=== PATIENT | male | born 1945 | race Caucasian/White ===

== ENCOUNTER 2020-01-29 09:02 | Outpatient (REF) | payer MEDICARE, SELFPAY ==
[2020-01-29 10:21] LABS: Estimated Average Glucose 232 mg/dL; Hemoglobin A1c % 9.7 %
[2020-01-29 10:27] LABS: Glucose Fasting 225 mg/dL (60-99)
== END 2020-01-29 09:03 | disposition home or self-care (01) ==
LOC: HO.LAB 09:02
PROVIDERS: PCP Internal Medicine; Visit Provider Internal Medicine
DX: E11.9 Type 2 diabetes mellitus without complications (principal)
CPT/HCPCS: 82947; 83036

== ENCOUNTER 2020-01-29 09:36 | Outpatient (REF) | payer MEDICARE, SELFPAY | END 2020-01-29 09:37 | disposition home or self-care (01) | LOC: HO.LAB 09:36 | PROVIDERS: PCP Internal Medicine; Visit Provider Internal Medicine | DX: Z20.828 Contact with and (suspected) exposure to other viral communicable diseases (principal) | CPT/HCPCS: 82947; 83036; C9803; U0003 ==

== ENCOUNTER 2020-04-22 10:45 | Outpatient (REF) | payer MEDICARE, SELFPAY ==
[2020-04-22 11:23] LABS: Hemoglobin 15.1 g/dl (14.0-18.0); MANUAL DIFF FLAG SCAN; SCAN SMEAR FLAG 1
[2020-04-22 11:25] LABS: Basophils Percent Auto 0.5 % (0-2); Eosinophils Absolute Auto 0.1 X10*3/uL (0.0-0.4); Eosinophils Percent Auto 1.2 % (0-4); Imm Gran Abs Auto 0.01 X10*3/uL (0.00-0.03); Imm Gran Pct Auto 0.1 % (0.0-0.4); Lymphocytes Absolute Auto 2.3 X10*3/uL (1.2-4.9); Lymphocytes Percent Auto 30.1 % (20-40); Mean Corpuscular HGB Conc 34.3 g/dl (31.0-36.0); Mean Corpuscular Hemoglobin 31.8 pg (27.0-33.0); Mean Corpuscular Volume 92.6 fL (80-98); Monocytes Absolute Auto 0.7 X10*3/uL (0.1-1.2); Monocytes Percent Auto 9.3 % (2-11); Neutrophils Absolute Auto 4.5 X10*3/uL (2.0-8.3); Neutrophils Percent Auto 58.8 % (45-73); Platelet Count 183 X10*3/uL (160-400); Red Blood Count 4.75 X10*6/uL (4.60-5.80); White Blood Count 7.6 X10*3/uL (4.8-10.8)
[2020-04-22 11:28] LABS: PLT ABN DIST 1
[2020-04-22 11:38] LABS: Estimated Average Glucose 212 mg/dL
[2020-04-22 12:19] LABS: Microalbum/Creatinine Ratio Ur 19.5 ug/mg cr
[2020-04-22 12:26] LABS: Alanine Aminotransferase 39 U/L (0-40); Albumin Level 4.2 g/dL (3.5-5.0); Alkaline Phosphatase 89 U/L (39-117); Anion Gap 15 (12-20); Aspartate Amino Transferase 19 U/L (5-37); Blood Urea Nitrogen 12 mg/dL (9-16); Calcium 8.7 mg/dL (8.4-10.2); Carbon Dioxide 29 mmol/L (22-29); Chloride 101 mmol/L (96-108); Cholesterol 123 mg/dL; Estimated Glomerular Filt Rate > 60; Glucose Fasting 211 mg/dL (60-99); HDL Cholesterol 34 mg/dL; LDL Cholesterol Calculated 65 mg/dl; Potassium 4.1 mmol/L (3.3-5.1); Sodium 141 mmol/L (135-145); Total Protein 6.3 g/dL (6.5-8.0); Triglycerides 123 mg/dL
[2020-04-22 12:41] LABS: PSA,Total (Free>4and<10) 0.88 ng/mL (0.00-4.00); TSH reflex Free T4 3.31 uIU/mL (0.32-4.0)
[2020-04-22 13:03] LABS: Reflex LDLD? No
== END 2020-04-22 10:46 | disposition home or self-care (01) ==
LOC: HO.LNP 10:45
PROVIDERS: Visit Provider Internal Medicine
DX: E11.9 Type 2 diabetes mellitus without complications (principal); I10 Essential (primary) hypertension; E78.00 Pure hypercholesterolemia, unspecified; E03.9 Hypothyroidism, unspecified; Z12.5 Encounter for screening for malignant neoplasm of prostate
CPT/HCPCS: 80053; 80061; 82043; 83036; 84153; 84443; 85025

== ENCOUNTER 2020-10-22 10:33 | Outpatient (REF) | payer MEDICARE, MEDICAID, SELFPAY ==
[2020-10-22 11:57] LABS: Alanine Aminotransferase 30 U/L (0-40); Alkaline Phosphatase 80 U/L (39-117); Aspartate Amino Transferase 17 U/L (5-37); Bilirubin Direct 0.4 mg/dL (0.0-0.5); Cholesterol 111 mg/dL; Glucose Fasting 234 mg/dL (60-99); HDL Cholesterol 30 mg/dL; LDL Cholesterol Calculated 52 mg/dl; Triglycerides 145 mg/dL
[2020-10-22 12:04] LABS: Estimated Average Glucose 252 mg/dL; Hemoglobin A1c % 10.4 %
[2020-10-22 13:29] LABS: Reflex LDLD? No
== END 2020-10-22 10:34 | disposition home or self-care (01) ==
LOC: HO.LNP 10:33
PROVIDERS: Visit Provider Internal Medicine
DX: E11.9 Type 2 diabetes mellitus without complications (principal); E78.00 Pure hypercholesterolemia, unspecified
CPT/HCPCS: 80061; 80076; 82947; 83036

== ENCOUNTER 2021-04-28 10:51 | Outpatient (REF) | payer MEDICARE, MEDICAID, SELFPAY ==
[2021-04-28 10:57] LABS: MANUAL DIFF FLAG NO
[2021-04-28 12:20] LABS: Basophils Percent Auto 0.4 % (0-2); Eosinophils Absolute Auto 0.1 X10*3/uL (0.0-0.4); Eosinophils Percent Auto 1.1 % (0-4); Hematocrit 42.5 % (42.0-52.0); Hemoglobin 14.7 g/dl (14.0-18.0); Imm Gran Abs Auto 0.02 X10*3/uL (0.00-0.03); Imm Gran Pct Auto 0.2 % (0.0-0.4); Lymphocytes Absolute Auto 2.5 X10*3/uL (1.2-4.9); Lymphocytes Percent Auto 30.3 % (20-40); Mean Corpuscular HGB Conc 34.6 g/dl (31.0-36.0); Mean Corpuscular Hemoglobin 31.5 pg (27.0-33.0); Mean Corpuscular Volume 91.2 fL (80.0-98.0); Monocytes Absolute Auto 0.8 X10*3/uL (0.1-1.2); Monocytes Percent Auto 9.8 % (2-11); Neutrophils Absolute Auto 4.8 x10*3/uL (2.0-8.3); Neutrophils Percent Auto 58.2 % (45-73); Platelet Count 171 X10*3/uL (160-400); Red Blood Count 4.66 X10*6/uL (4.60-5.80); Red Cell Distribution Width 11.8 % (11.0-16.0); White Blood Count 8.3 X10*3/uL (4.8-10.8)
[2021-04-28 12:31] LABS: Estimated Average Glucose 243 mg/dL; Hemoglobin A1c % 10.1 %
[2021-04-28 12:33] LABS: Alanine Aminotransferase 25 U/L (0-40); Albumin Level 4.1 g/dL (3.5-5.0); Alkaline Phosphatase 71 U/L (39-117); Anion Gap 14 (12-20); Aspartate Amino Transferase 17 U/L (5-37); Bilirubin Total 0.8 mg/dL (0.0-1.0); Blood Urea Nitrogen 15 mg/dL (9-16); Carbon Dioxide 29 mmol/L (22-29); Chloride 99 mmol/L (96-108); Cholesterol 113 mg/dL; Estimated Glomerular Filt Rate > 60; Glucose Fasting 271 mg/dL (60-99); HDL Cholesterol 32 mg/dL; LDL Cholesterol Calculated 61 mg/dl; Sodium 138 mmol/L (135-145); Total Protein 6.2 g/dL (6.5-8.0); Triglycerides 100 mg/dL
[2021-04-28 12:48] LABS: Appearance Urine CLEAR; Color Urine YELLOW; Glucose Urine UA 500 MG/DL (NEG); Leukocyte Esterase Urine NEG (NEG); Nitrite Urine NEG (NEG); Specific Gravity - Urine 1.025 (1.005-1.025); Urine Blood NEG (NEG); Urine Ketones NEG (NEG); Urine Protein TRACE MG/DL (NEG-TRACE)
[2021-04-28 12:54] LABS: PSA,Total (Free>4and<10) 1.19 ng/mL (0.00-4.00)
[2021-04-28 13:05] LABS: Creatinine Urine 149.17 mg/dL; Microalbum/Creatinine Ratio Ur 35.5 ug/mg cr
== END 2021-04-28 10:52 | disposition home or self-care (01) ==
LOC: HO.LNP 10:51
PROVIDERS: Visit Provider Internal Medicine
DX: Z12.5 Encounter for screening for malignant neoplasm of prostate (principal); E78.00 Pure hypercholesterolemia, unspecified; E11.9 Type 2 diabetes mellitus without complications; E03.9 Hypothyroidism, unspecified; I10 Essential (primary) hypertension
CPT/HCPCS: 80053; 80061; 81003; 82043; 83036; 84153; 84443; 85025

== ENCOUNTER 2021-10-27 10:54 | Outpatient (REF) | payer MEDICARE, MEDICAID, SELFPAY ==
[2021-10-27 11:32] LABS: Estimated Average Glucose 171 mg/dL; Hemoglobin A1c % 7.6 %
[2021-10-27 11:36] LABS: Alanine Aminotransferase 22 U/L (0-40); Albumin Level 4.2 g/dL (3.5-5.0); Alkaline Phosphatase 78 U/L (39-117); Aspartate Amino Transferase 15 U/L (5-37); Bilirubin Direct 0.3 mg/dL (0.0-0.5); Bilirubin Total 0.8 mg/dL (0.0-1.0); Cholesterol 121 mg/dL; Glucose Fasting 169 mg/dL (60-99); HDL Cholesterol 34 mg/dL; LDL Cholesterol Calculated 60 mg/dl; Total Protein 6.5 g/dL (6.5-8.0); Triglycerides 135 mg/dL
[2021-10-27 14:24] LABS: Reflex LDLD? No
== END 2021-10-27 10:55 | disposition home or self-care (01) ==
LOC: HO.LNP 10:54
PROVIDERS: Visit Provider Internal Medicine
DX: E78.00 Pure hypercholesterolemia, unspecified (principal); E11.9 Type 2 diabetes mellitus without complications
CPT/HCPCS: 80061; 80076; 82947; 83036

== ENCOUNTER 2022-05-25 11:03 | Outpatient (REF) | payer MEDICARE, MEDICAID, SELFPAY ==
[2022-05-25 11:08] LABS: MANUAL DIFF FLAG NO
[2022-05-25 12:47] LABS: Basophils Percent Auto 0.4 % (0-2); Eosinophils Absolute Auto 0.1 X10*3/uL (0.0-0.4); Eosinophils Percent Auto 1.8 % (0-4); Hematocrit 42.6 % (42.0-52.0); Hemoglobin 14.8 g/dl (14.0-18.0); Imm Gran Abs Auto 0.02 X10*3/uL (0.00-0.03); Imm Gran Pct Auto 0.3 % (0.0-0.4); Lymphocytes Absolute Auto 2.4 X10*3/uL (1.2-4.9); Lymphocytes Percent Auto 33.7 % (20-40); Mean Corpuscular HGB Conc 34.7 g/dl (31.0-36.0); Mean Corpuscular Hemoglobin 31.3 pg (27.0-33.0); Mean Corpuscular Volume 90.1 fL (80.0-98.0); Mean Platelet Volume 13.6 fL (9.4-12.4); Monocytes Absolute Auto 0.8 X10*3/uL (0.1-1.2); Monocytes Percent Auto 10.8 % (2-11); Neutrophils Absolute Auto 3.7 x10*3/uL (2.0-8.3); Platelet Count 179 X10*3/uL (160-400); Red Blood Count 4.73 X10*6/uL (4.60-5.80); Red Cell Distribution Width 12.3 % (11.0-16.0); White Blood Count 7.1 X10*3/uL (4.8-10.8)
[2022-05-25 13:07] LABS: Estimated Average Glucose 180 mg/dL; Hemoglobin A1c % 7.9 %
[2022-05-25 13:15] LABS: Appearance Urine Clear; Color Urine Yellow; Glucose Urine UA Negative (Negative); Leukocyte Esterase Urine Negative (Negative); Nitrite Urine Negative (Negative); PH 6.5 (5.0-9.0); Urine Blood Negative (Negative); Urine Ketones Negative (Negative); Urine Protein Trace mg/dL (Neg-Trace)
[2022-05-25 13:18] LABS: Alanine Aminotransferase 20 U/L (0-40); Albumin Level 4.1 g/dL (3.5-5.0); Alkaline Phosphatase 81 U/L (39-117); Anion Gap 12 (12-20); Aspartate Amino Transferase 15 U/L (5-37); Blood Urea Nitrogen 14 mg/dL (9-16); Carbon Dioxide 31 mmol/L (22-29); Chloride 102 mmol/L (96-108); Cholesterol 129 mg/dL; Estimated Glomerular Filt Rate > 60; Glucose Fasting 179 mg/dL (60-99); HDL Cholesterol 28 mg/dL; LDL Cholesterol Calculated 76 mg/dl; Potassium 3.9 mmol/L (3.3-5.1); Sodium 141 mmol/L (135-145); Total Protein 6.2 g/dL (6.5-8.0); Triglycerides 126 mg/dL
[2022-05-25 13:19] LABS: Bacteria Urine None Seen (None Seen); Hyaline Casts Urine 0-2 /LPF (0-2); RBC Urine 0-2 /HPF (0-2); Squamous Epithelial Cell Urine 0-2 /HPF (0-2); WBC Urine 0-5 /HPF (0-5)
[2022-05-25 13:24] LABS: Creatinine Urine 193.58 mg/dL; Microalbum/Creatinine Ratio Ur 13.9 ug/mg cr
[2022-05-25 13:35] LABS: PSA,Total (Free>4and<10) 1.47 ng/mL (0.00-4.00); TSH reflex Free T4 3.78 uIU/mL (0.32-4.0)
== END 2022-05-25 11:04 | disposition home or self-care (01) ==
LOC: HO.LNP 11:03
PROVIDERS: Visit Provider Internal Medicine
DX: Z12.5 Encounter for screening for malignant neoplasm of prostate (principal); E78.00 Pure hypercholesterolemia, unspecified; E11.9 Type 2 diabetes mellitus without complications; E03.9 Hypothyroidism, unspecified; I10 Essential (primary) hypertension
CPT/HCPCS: 80053; 80061; 81001; 82043; 83036; 84153; 84443; 85025

== ENCOUNTER 2022-12-21 10:54 | Outpatient (REF) | payer MEDICARE, MEDICAID, SELFPAY ==
[2022-12-21 10:58] LABS: MANUAL DIFF FLAG NO
[2022-12-21 11:28] LABS: Basophils Percent Auto 0.1 % (0-2); Eosinophils Absolute Auto 0.1 X10*3/uL (0.0-0.4); Eosinophils Percent Auto 0.5 % (0-4); Hemoglobin 14.9 g/dl (14.0-18.0); Imm Gran Abs Auto 0.03 X10*3/uL (0.00-0.03); Imm Gran Pct Auto 0.3 % (0.0-0.4); Lymphocytes Absolute Auto 2.1 X10*3/uL (1.2-4.9); Lymphocytes Percent Auto 22.5 % (20-40); Mean Corpuscular HGB Conc 34.7 g/dl (31.0-36.0); Mean Corpuscular Hemoglobin 31.2 pg (27.0-33.0); Monocytes Percent Auto 10.8 % (2-11); Neutrophils Absolute Auto 6.2 x10*3/uL (2.0-8.3); Neutrophils Percent Auto 65.8 % (45-73); Platelet Count 188 X10*3/uL (160-400); Red Blood Count 4.78 X10*6/uL (4.60-5.80); Red Cell Distribution Width 12.4 % (11.0-16.0); White Blood Count 9.4 X10*3/uL (4.8-10.8)
[2022-12-21 11:32] LABS: Appearance Urine Clear; Color Urine Yellow; Glucose Urine UA 100 mg/dL (Negative); Leukocyte Esterase Urine Trace (Negative); Nitrite Urine Negative (Negative); PH 5.5 (5.0-9.0); Specific Gravity - Urine 1.025 (1.005-1.025); UMIC TRIGGER UACC YES; Urine Blood Negative (Negative); Urine Ketones Negative (Negative); Urine Protein 100 (2+) mg/dL (Neg-Trace)
[2022-12-21 11:36] LABS: Estimated Average Glucose 180 mg/dL; Hemoglobin A1c % 7.9 % (<6.0)
[2022-12-21 11:38] LABS: Bacteria Urine None Seen (None Seen); Hyaline Casts Urine 0-2 /LPF (0-2); RBC Urine 0-2 /HPF (0-2); Squamous Epithelial Cell Urine 0-2 /HPF (0-2); WBC Urine 0-5 /HPF (0-5)
[2022-12-21 11:48] LABS: Alanine Aminotransferase 23 U/L (0-40); Albumin Level 3.9 g/dL (3.5-5.0); Alkaline Phosphatase 81 U/L (39-117); Anion Gap 12 (12-20); Aspartate Amino Transferase 13 U/L (5-37); Blood Urea Nitrogen 11 mg/dL (9-16); Calcium 9.4 mg/dL (8.4-10.2); Carbon Dioxide 30 mmol/L (22-29); Chloride 101 mmol/L (96-108); Cholesterol 135 mg/dL (<200); Estimated Glomerular Filt Rate > 60; Glucose Fasting 210 mg/dL (60-99); HDL Cholesterol 36 mg/dL (>40); LDL Cholesterol Calculated 79 mg/dL (<100); Potassium 3.8 mmol/L (3.3-5.1); Sodium 139 mmol/L (135-145); Total Protein 6.9 g/dL (6.5-8.0); Triglycerides 103 mg/dL (<150)
[2022-12-21 12:08] LABS: PSA,Total (Free>4and<10) 1.57 ng/mL (0.00-4.00)
[2022-12-21 12:11] LABS: TSH reflex Free T4 3.62 uIU/mL (0.32-4.0)
== END 2022-12-21 10:55 | disposition home or self-care (01) ==
LOC: HO.LNP 10:54
PROVIDERS: Visit Provider Internal Medicine
DX: E78.00 Pure hypercholesterolemia, unspecified (principal); E11.9 Type 2 diabetes mellitus without complications; E03.9 Hypothyroidism, unspecified; I10 Essential (primary) hypertension; Z12.5 Encounter for screening for malignant neoplasm of prostate
CPT/HCPCS: 80053; 80061; 81001; 83036; 84153; 84443; 85025

== ENCOUNTER 2023-06-28 11:11 | Outpatient (REF) | payer MEDICARE, MEDICAID, SELFPAY ==
[2023-06-28 11:16] LABS: MANUAL DIFF FLAG NO
[2023-06-28 12:11] LABS: Appearance Urine Clear; Color Urine Dark Yellow; Glucose Urine UA 500 mg/dL (Negative); Leukocyte Esterase Urine Negative (Negative); Nitrite Urine Negative (Negative); PH 5.5 (5.0-9.0); Specific Gravity - Urine 1.025 (1.005-1.025); UMIC TRIGGER UACC YES; Urine Blood Negative (Negative); Urine Ketones Trace mg/dL (Negative); Urine Protein 30 (1+) mg/dL (Neg-Trace)
[2023-06-28 12:14] LABS: Bacteria Urine None Seen (None Seen); Hyaline Casts Urine 0-2 /LPF (0-2); RBC Urine 0-2 /HPF (0-2); Squamous Epithelial Cell Urine 0-2 /HPF (0-2); WBC Urine 0-5 /HPF (0-5)
[2023-06-28 12:32] LABS: Basophils Absolute Auto 0.1 X10*3/uL (0.0-0.2); Basophils Percent Auto 0.6 % (0-2); Eosinophils Absolute Auto 0.1 X10*3/uL (0.0-0.4); Hematocrit 43.5 % (42.0-52.0); Hemoglobin 15.2 g/dl (14.0-18.0); Imm Gran Abs Auto 0.02 X10*3/uL (0.00-0.03); Imm Gran Pct Auto 0.3 % (0.0-0.4); Lymphocytes Absolute Auto 2.2 X10*3/uL (1.2-4.9); Lymphocytes Percent Auto 27.6 % (20-40); Mean Corpuscular HGB Conc 34.9 g/dl (31.0-36.0); Mean Corpuscular Hemoglobin 31.5 pg (27.0-33.0); Mean Corpuscular Volume 90.1 fL (80.0-98.0); Mean Platelet Volume 13.3 fL (9.4-12.4); Monocytes Absolute Auto 0.7 X10*3/uL (0.1-1.2); Monocytes Percent Auto 8.5 % (2-11); Neutrophils Absolute Auto 4.9 x10*3/uL (2.0-8.3); Platelet Count 184 X10*3/uL (160-400); Red Blood Count 4.83 X10*6/uL (4.60-5.80); Red Cell Distribution Width 12.1 % (11.0-16.0)
[2023-06-28 12:39] LABS: Estimated Average Glucose 237 mg/dL; Hemoglobin A1c % 9.9 % (<6.0)
[2023-06-28 12:51] LABS: Creatinine Urine 163.35 mg/dL; Microalbum/Creatinine Ratio Ur 121.2 ug/mg cr (<30)
[2023-06-28 12:53] LABS: Alanine Aminotransferase 30 U/L (0-40); Albumin Level 4.1 g/dL (3.5-5.0); Alkaline Phosphatase 70 U/L (39-117); Anion Gap 17 (12-20); Aspartate Amino Transferase 18 U/L (5-37); Bilirubin Total 0.8 mg/dL (0.0-1.0); Blood Urea Nitrogen 19 mg/dL (9-16); Calcium 9.3 mg/dL (8.4-10.2); Carbon Dioxide 26 mmol/L (22-29); Chloride 99 mmol/L (96-108); Cholesterol 110 mg/dL (<200); Estimated Glomerular Filt Rate > 60; Glucose Fasting 248 mg/dL (60-99); HDL Cholesterol 30 mg/dL (>40); LDL Cholesterol Calculated 48 mg/dL (<100); Potassium 4.1 mmol/L (3.3-5.1); Sodium 138 mmol/L (135-145); Total Protein 6.5 g/dL (6.5-8.0); Triglycerides 160 mg/dL (<150)
[2023-06-28 12:57] LABS: PSA,Total (Free>4and<10) 1.36 ng/mL (0.00-4.00)
[2023-06-28 13:01] LABS: TSH reflex Free T4 2.38 uIU/mL (0.32-4.0)
== END 2023-06-28 11:12 | disposition home or self-care (01) ==
LOC: HO.LNP 11:11
PROVIDERS: Visit Provider Internal Medicine
DX: E03.9 Hypothyroidism, unspecified (principal); E11.9 Type 2 diabetes mellitus without complications; I10 Essential (primary) hypertension; Z12.5 Encounter for screening for malignant neoplasm of prostate
CPT/HCPCS: 80053; 80061; 81001; 82043; 82570; 83036; 84153; 84443; 85025

== ENCOUNTER 2023-12-27 11:58 | Outpatient (REF) | payer MEDICARE, MEDICAID, SELFPAY ==
[2023-12-27 12:34] LABS: Estimated Average Glucose 171 mg/dL; Hemoglobin A1C 230.0231 umol/L; Hemoglobin A1c % 7.6 % (<6.0); Total Hemoglobin (HGBA1C) 3887.4366 umol/L
[2023-12-27 12:36] LABS: Alanine Aminotransferase 30 U/L (0-40); Albumin Level 4.2 g/dL (3.5-5.0); Alkaline Phosphatase 65 U/L (39-117); Aspartate Amino Transferase 26 U/L (5-37); Bilirubin Direct 0.3 mg/dL (0.0-0.5); Bilirubin Total 1.1 mg/dL (0.0-1.0); Cholesterol 119 mg/dL (<200); Glucose Fasting 176 mg/dL (60-99); HDL Cholesterol 34 mg/dL (>40); LDL Cholesterol Calculated 51 mg/dL (<100); Total Protein 6.6 g/dL (6.5-8.0); Triglycerides 173 mg/dL (<150)
[2023-12-27 14:07] LABS: Reflex LDLD? No
== END 2023-12-27 11:59 | disposition home or self-care (01) ==
LOC: HO.LNP 11:58
PROVIDERS: Visit Provider Internal Medicine
DX: E78.00 Pure hypercholesterolemia, unspecified (principal); E11.9 Type 2 diabetes mellitus without complications
CPT/HCPCS: 80061; 80076; 82947; 83036

== ENCOUNTER 2024-07-03 10:45 | Outpatient (REF) | payer MEDICARE, MEDICAID, SELFPAY ==
[2024-07-03 10:48] LABS: MANUAL DIFF FLAG NO
[2024-07-03 11:07] LABS: Appearance Urine Clear; Basophils Percent Auto 0.3 % (0-2); Color Urine Yellow; Eosinophils Absolute Auto 0.1 X10*3/uL (0.0-0.4); Glucose Urine UA Negative (Negative); Hematocrit 42.3 % (42.0-52.0); Hemoglobin 15.1 g/dl (14.0-18.0); Imm Gran Abs Auto 0.03 X10*3/uL (0.00-0.03); Imm Gran Pct Auto 0.4 % (0.0-0.4); Leukocyte Esterase Urine Negative (Negative); Lymphocytes Absolute Auto 2.1 X10*3/uL (1.2-4.9); Mean Corpuscular HGB Conc 35.7 g/dl (31.0-36.0); Mean Corpuscular Hemoglobin 32.2 pg (27.0-33.0); Mean Corpuscular Volume 90.2 fL (80.0-98.0); Mean Platelet Volume 12.9 fL (9.4-12.4); Monocytes Absolute Auto 0.6 X10*3/uL (0.1-1.2); Neutrophils Absolute Auto 4.3 x10*3/uL (2.0-8.3); Neutrophils Percent Auto 60.3 % (45-73); Nitrite Urine Negative (Negative); PH 5.5 (5.0-9.0); Platelet Count 198 X10*3/uL (160-400); Red Blood Count 4.69 X10*6/uL (4.60-5.80); Specific Gravity - Urine 1.025 (1.005-1.025); Urine Blood Negative (Negative); Urine Ketones Trace mg/dL (Negative); Urine Protein Trace mg/dL (Neg-Trace); White Blood Count 7.2 X10*3/uL (4.8-10.8)
[2024-07-03 11:14] LABS: Estimated Average Glucose 192 mg/dL; Hemoglobin A1C 259.7692 umol/L; Hemoglobin A1c % 8.3 % (<6.0); Total Hemoglobin (HGBA1C) 3844.5932 umol/L
[2024-07-03 11:17] LABS: Bacteria Urine None Seen (None Seen); Hyaline Casts Urine 0-2 /LPF (0-2); Squamous Epithelial Cell Urine 0-2 /HPF (0-2); WBC Urine 0-5 /HPF (0-5)
[2024-07-03 11:19] LABS: RBC Urine 0-2 /HPF (0-2)
[2024-07-03 11:30] LABS: Alanine Aminotransferase 26 U/L (0-40); Albumin Level 4.3 g/dL (3.5-5.0); Alkaline Phosphatase 67 U/L (39-117); Anion Gap 11 (12-20); Aspartate Amino Transferase 19 U/L (5-37); Blood Urea Nitrogen 14 mg/dL (9-16); Calcium 9.3 mg/dL (8.4-10.2); Carbon Dioxide 31 mmol/L (22-29); Chloride 100 mmol/L (96-108); Cholesterol 118 mg/dL (<200); Estimated Glomerular Filt Rate > 60; Glucose Fasting 205 mg/dL (60-99); HDL Cholesterol 31 mg/dL (>40); LDL Cholesterol Calculated 59 mg/dL (<100); Sodium 138 mmol/L (135-145); Total Protein 6.6 g/dL (6.5-8.0); Triglycerides 143 mg/dL (<150)
[2024-07-03 11:36] LABS: PSA,Total (Free>4and<10) 1.75 ng/mL (0.00-4.00)
[2024-07-03 11:37] LABS: TSH reflex Free T4 3.02 uIU/mL (0.32-4.0)
--- OUTSIDE RECORDS SUMMARY | 2024-07-03 11:52 | XMS_ITS | Patient Health Record ---
Author Organization Eliseo Campos MD Address [address] [place], [place] [id number] Care Team Providers Care Logistics Assistant Name Role Phone Eliseo Campos Primary Care Provider Allergies No Known Allergies Results Component Value Reference Range Notes Hemoglobin A1c Reviewed date:10/04/2023 10:15:28 AM Interpretation: Performing Lab: Notes/Report: Hemoglobin A1c 8.0 Liver Panel Reviewed date:12/27/2023 04:39:22 PM Interpretation: Performing Lab:[facility], [address] [place] [phone] Notes/Report: Bilirubin Total 1.1 0.0-1.0 mg/dL Bilirubin Direct 0.3 0.0-0.5 mg/dL Aspartate Amino Transferase 26 5-37 U/L Alanine Aminotransferase 30 0-40 U/L Total Protein 6.6 6.5-8.0 g/dL Albumin Level 4.2 3.5-5.0 g/dL Alkaline Phosphatase 65 39-117 U/L Glucose Fasting Reviewed date:12/27/2023 04:44:18 PM Interpretation: Performing Lab:[facility], [address] [place] [id number] Notes/Report: Glucose Fasting 176 60-99 mg/dL A fasting glucose of 126 mg/dl or greater on more than one occasion is considered diagnostic of diabetes. Lipid Panel with Reflex Reviewed date:12/27/2023 04:43:57 PM Interpretation: Performing Lab:[facility], [address] [place] [phone] Notes/Report: Triglycerides 173 <150 mg/dL Desirable Triglyceride: [...] A1c Reviewed date:12/27/2023 12:40:02 PM Interpretation: Performing Lab:[facility], [address] [place] [phone] Notes/Report: Hemoglobin A1c % 7.6 <6.0 % [...] average glucose, using the formula of the D6K-Zdgkyrj Average Glucose study (ADAG), Diabetes Care, Vol.31,#8, 2007 Complete Blood Count Auto Di ff (Not yet reviewed by provider) Interpretation: Performing Lab:[facility], [address] [place] [phone] Notes/Report: White Blood Count 7.2 4.8-10.8 X10*3/uL [...] NRBC Abs Auto 0.000 0.0-0.012 X10*3/uL Comprehensive [place]. Panel Fa st (Not yet reviewed by provider) Interpretation: Performing Lab:[facility], [address] [place] [phone] Notes/Report: Sodium 138 135-145 mmol/L Potassium 4.0 [...] Alkaline Phosphatase 67 39-117 U/L Lipid Panel (Not yet reviewe d by provider) Interpretation: Performing Lab:[address] [phone] Notes/Report: Triglycerides 143 <150 mg/dL Desirable Triglyceride: [...] in patients with liver disease. PSA,Total (Free>4and<10) (No t yet reviewed by provider) Interpretation: Performing Lab:[address] [phone] Notes/Report: PSA,Total (Free>4and<10) 1.75 0.00-4.00 ng/mL A [...] between 4.0 and 10.0 ng/mL. PSA methodology: Symonicsnity i Chemiluminescent Microparticle Immunoassay (CMIA) TSH reflex Free T4 (Not yet reviewed by provider) Interpretation: Performing Lab:[facility], [address] [place] [phone] Notes/Report: TSH reflex Free T4 3.02 0.32-4.0 uIU/mL Hemoglobin A1c (Not yet revi ewed by provider) Interpretation: Performing Lab:[facility], [address] [place] [id number] Notes/Report: Hemoglobin A1c % 8.3 <6.0 % [...] average glucose, using the formula of the Y2L-Zldthsj Average Glucose study (ADAG), Diabetes Care, Vol.31,#8, Sep. 2007 UA ClnCatch+Micro w/rflx Cul t (Not yet reviewed by provider) Interpretation: Performing Lab:[facility], [address] [place] [phone] Notes/Report: Urine, Clean Catch Color Urine Yellow Appearance Urine Clear PH 5.5 5.0-9.0 Glucose Urine UA Negative Negative mg/dL Urine Blood Negative Negative Specific [place] - Urine 1.025 1.005-1.025 Urine Protein Trace Neg-Trace mg/dL Urine Ketones Trace Negative mg/dL Nitrite Urine Negative Negative Leukocyte Esterase Urine Negative Negative RBC Urine 0-2 0-2 /HPF WBC Urine 0-5 0-5 /HPF Squamous Epithelial Cell Urine 0-2 0-2 /HPF Bacteria Urine None Seen None Seen Hyaline Casts Urine 0-2 0-2 /LPF Glucose, finger stick Reviewed date:07/05/2023 11:03:15 AM Interpretation: Performing Lab: Notes/Report: Value 265 Glucose, finger stick Reviewed date:10/04/2023 10:10:01 AM Interpretation: Performing Lab: Notes/Report: Value 143 Hold Gold Reviewed date:12/27/2023 12:33:02 PM Interpretation: Performing Lab:[facility], [address] [place] [phone] Notes/Report: Hold Gold See Note Specimen held untested for 24 hours; Call to request Chemistry testing. Reason For Referral No Information Medications Medication SIG (Take, Route, Frequency, Duration) Notes Start Date End Date Status metFORMIN HCl 500 MG TAKE 2 TABLETS BY M OUTH TWICE A DAY WITH MEALS Active Atorvastatin Calcium 40 MG TAKE 1 TABLET BY MOUTH EVERY DAY Orally Once a day Active FreeStyle Lite Test - as directed In Vit ro daily for 90 days 01/03/2024 Active Levothyroxine Sodium 75 MCG TAKE 1 TABLE T BY MOUTH EVERY DAY IN THE MORNING ON EMPTY STOMACH for 90 Active Omeprazole 20 MG TAKE 1 CAPSULE BY MO UTH EVERY DAY 30 MINUTES BEFORE MORNING MEAL for 90 Active FreeStyle Lite Test - USE TO TEST BLOOD SUGAR ONCE A DAY In Vitro for 90 days Active amLODIPine Besylate 5 MG TAKE 1 TABLET B Y MOUTH EVERY DAY for 90 Active FreeStyle Lancets - as directed for 90 days 2020 Active Rybelsus 7 MG TAKE 1 TABLET BY GHASSAN TH ONCE A DAY AT LEAST 30 MINUTES BEFORE FIRST FOOD, BEVERAGE OR OTHER ORAL MEDS for 90 Active Lisinopril-hydroCHLOROthiazi de 20-12.5 MG TAKE 1 TABLET BY MOUTH EVERY DAY for 90 days Active Immunizations Vaccine Route Administration Date Status Comme nts Fluarix Quadrivalent IM Intramuscular 01/15/2018 Administe red Prevnar 13 IM Intramuscular 05/31/2018 Administered Fluarix Quadrivalent IM Intramuscular 11/01/2018 Administe red Influenza High Dose IM Intramuscular 10/30/2019 Administer ed SARS-COV-2 Moderna Unknown 04/15/2020 Administered SARS-COV-2 Moderna Unknown 05/13/2020 Administered Influenza High Dose IM Intramuscular 11/11/2020 Administer ed SARS-COV-2 Moderna Unknown 12/16/2020 [facility]ered [facility] Influenza High Dose IM Intramuscular 10/27/2021 Administer ed SARS-COV-2 Moderna Unknown 11/25/2021 [facility]ered [facility] SARS-COV-2 Moderna Unknown 06/29/2022 [facility]ered [facility] SARS-COV-2 Moderna Unknown 11/22/2022 [facility]ered [facility] Influenza High Dose Unknown 11/22/2022 [facility] Influenza High Dose Unknown 10/18/2023 [facility] SARS-COV-2 Pfizer Unknown 10/18/2023 [facility] Social History Tobacco Use: Social History Observation Description Date Details (start date - stop date) Never Smoker NA - NA Tobacco Use/Smoking Question Answer Notes Patient is a nonsmoker Additional Findings: Tobacco Non-User Cu rrent non-smoker, currently using no form of tobacco Alcohol Screen Question Answer Notes Did you have a drink contain ing alcohol in the past year? Yes How often did you have a dri nk containing alcohol in the past year? 2 to 3 times a week (3 points) How many drinks did you have on a typical day when you were drinking in the past year? 1 or 2 drinks (0 point) How often did you have 6 or more drinks on one occasion in the past year? 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 Problem 53411582 Essential hypert ension (I10) Active confirmed Problem 272958843 Acquired hypothy roidism (E03.9) Active confirmed Problem 36170428 Hypercholesterol emia (E78.00) Active confirmed Problem 245450194 Type 2 diabetes mellitus without complication, without long-term current use of insulin (E11.9) Active confirmed Problem 94094808 Hyperplastic luis yp of sigmoid colon (K63.5) Active confirmed Vital Signs Blood pressure diastolic 76 mm Hg 01/03/2024 yanely ght is down 1 pound since 10-04-23 Height 67.5 in 01/03/2024 weight is down 1 pound since 10-04-23 Blood pressure systolic 138 mm Hg 01/03/2024 weig ht is down 1 pound since 10-04-23 Weight 209 lbs 01/03/2024 weight is down 1 pound since 10-04-23 BMI 32.25 kg/m2 01/03/2024 weight is down 1 pound since 10-04-23 Encounters Encounter Location Date Provider Diagnosis Eliseo Campos MD [address] [place] [phone] 12/27/2023 Eliseo Pepperardier Hypercholesterolemia E78.00 and Type 2 diabetes mellitus without complication, without long-term current use of insulin E11.9 Eliseo Campos MD [address] [place] [id number] 07/03/2024 Eliseo Pepperardier Hypercholesterolemia E78.00 ; Type 2 diabetes mellitus without complication, without long-term current use of insulin E11.9 ; Acquired hypothyroidism E03.9 and Essential hypertension I10 Eliseo Campos MD [address] [id number] 07/05/2023 Eliseo Campos Type 2 diabetes mandeep itus without complication, without long-term current use of insulin E11.9 ; Hypercholesterolemia E78.00 ; Acquired hypothyroidism E03.9 and Essential hypertension I10 Eliseo Campos MD [address] [id number] 10/04/2023 Eliseo Campos Type 2 diabetes mandeep itus without complication, without long-term current use of insulin E11.9 ; Essential hypertension I10 ; Pain in right shoulder M25.511 and Pain in left shoulder M25.512 Eliseo Campos MD [address] [id number] 01/03/2024 Eliseo Campos Hypercholesterolemia E78.00 ; Type 2 diabetes mellitus without complication, without long-term current use of insulin E11.9 and Essential hypertension I10 Eliseo Campos MD [address] [id number] 09/07/2023 Eliseo Campos MD [address] [place] [id number] 12/20/2023 Eliseo Campos Hypercholesterolemia E78.00 Eliseo Campos MD [address] [place] [phone] 06/06/2024 Eliseo Campos Essential hypertensi on I10 Assessments Encounter Date Diagnosis (ICD Code) Assessment Notes Treatment Notes Treatment Clinical Notes Section Notes 12/27/2023 Hypercholesterolemia (ICD-10 - E78.00) 12/27/2023 Type 2 diabetes mellitus without complication, without long-term current use of insulin (ICD-10 - E11.9) 07/03/2024 Hypercholesterolemia (ICD-10 - E78.00) 07/05/2023 Type 2 diabetes mellitus without complication, without long-term current use of insulin (ICD-10 - E11.9) will continue curent regiment, needs to diet and exercise 07/05/2023 Hypercholesterolemia (ICD-10 - E78.00) will continue current regiment, has low hdl. needs to exercise 10/04/2023 Type 2 diabetes mellitus without complication, without long-term current use of insulin (ICD-10 - E11.9) discussed ozempic but is improving so will observe, will continue curent regiment 10/04/2023 Essential hypertensi on (ICD-10 - I10) stable, will contiue current regiment 01/03/2024 Hypercholesterolemia (ICD-10 - E78.00) doing well on meds, will cntinue current regiment 12/20/2023 Hypercholesterolemia (ICD-10 - E78.00) 06/06/2024 Essential hypertensi on (ICD-10 - I10) 07/03/2024 Type 2 diabetes mellitus without complication, without long-term current use of insulin (ICD-10 - E11.9) 07/05/2023 Acquired hypothyroid ism (ICD-10 - E03.9) stable, will continue current regiment 10/04/2023 Pain in right should er (ICD-10 - M25.511) 01/03/2024 Type 2 diabetes mellitus without complication, without long-term current use of insulin (ICD-10 - E11.9) has an improvement in a1c, will contiue current regiment 07/03/2024 Acquired hypothyroid ism (ICD-10 - E03.9) 07/05/2023 Essential hypertensi on (ICD-10 - I10) stable, will continue current regiment 10/04/2023 Pain in left shoulde r (ICD-10 - M25.512) advised him to continue exercise as he seems to get better with being active 01/03/2024 Essential hypertensi on (ICD-10 - I10) stable, will continue current regiment 07/03/2024 Essential hypertensi on (ICD-10 - I10) Plan Of Treatment Pending Test Test Name Order Date Electrocardiogram (EKG) 04/18/2018 Complete Blood Count Auto Diff 5 Comprehensive [place]. Panel Fast Lipid Panel 07/03/2024 PSA,Total (Free>4and<10) 07/03/2024 TSH reflex Free T4 07/03/2024 Microalbumin, Random 07/03/2024 Hemoglobin A1c 07/03/2024 UA ClnCatch+Micro w/rflx Cult 07/03/2024 Next Appt Details Provider Name:Eliseo Mi ier, 07/10/2024 11:00:00 AM, [address], [address], [place], [place], [phone], Insurance Providers Payer Name Payer Address Payer Phone Subscriber Number Group Number Insured Name Patient Relationship to Insured Coverage Start Date Coverage End Date [employer] [address] [place] [address] [id number] Ashwin Hunt Self - patient is the insured [facility] [address] [place] [id number] Ashwin Hunt Self - patient is the insured Medical (General) History Medical History History ICD Code Colonoscopy done 07/03/2017 aubree Petit (he thinks) Hyperplastic Polyp in Sigmoid Colon, Repeat 10 years rybelsus is substitute for marcosuvbreezy
--- OUTSIDE RECORDS SUMMARY | 2024-07-03 11:52 | XMS_ITS ---
Author Organization Eliseo Campos MD Address [address] [place] [phone] Care Team Providers Care Printing Agent Name Role Phone Eliseo Campos Primary Care Provider REASON FOR VISIT refills Medications Medication SIG (Take, Route, Frequency, Duration) Notes Start Date End Date Status Lisinopril-hydroCHLOROthia zide 20-12.5 MG TAKE 1 TABLET BY MOUTH EVERY DAY for 90 days Active Encounters Encounter Location Date Provider Diagnosis Eliseo Campos MD [address] [place] [id number] 06/06/2024 Eliseo Campos Essential hypertension I10 Assessments Encounter Date Diagnosis (ICD Code) Assessment Notes Treatment Notes Treatment Clinical Notes Section Notes 06/06/2024 Essential hypertension (ICD-10 - I10) Plan Of Treatment Medication Medication Name Sig Start Date Stop Date Notes Lisinopril-hydroCHLOROthiazi de 20-12.5 MG TAKE 1 TABLET BY MOUTH EVERY DAY for 90 days Next Appt Details Provider Name:Eliseo lovett, 07/10/2024 11:00:00 AM, [address], Suite [facility], [place], [place], [phone], Progress Notes * Ashwin GOLDDOB:[birth year] (78 yo M)Acc No.[id number]:06/06/2024 Patient:?Ashwin GOLD :1945???Age:78 Y???Sex:Male [facility] [place], [address] * Refills? Refill Lisinopril-hydroCHLOROthiazide Tablet, 20-12.5 MG, 90, TAKE 1 TABLET BY MOUTH EVERY DAY, 90 days, Refills=3 * true * Date:? Generated for Gerardo waite/Bernardino/eTransmitting on:?07/03/2024 11:52 AM EDT
--- OUTSIDE RECORDS SUMMARY | 2024-07-03 11:52 | XMS_ITS ---
Author Organization Eliseo Campos MD Address [address] [place], [place] [phone] Care Team Providers Care Director Recreation Name Role Phone Eliseo Campos Primary Care [...] Date Provider Diagnosis Eliseo Campos MD [address] [place], [place] [phone] 01/03/2024 Eliseo Campos Hypercholesterolemia E78.00 ; Type [...] regiment Next Appt Details Provider Name:Eliseo lovett, 07/10/2024 11:00:00 AM, [address], [address], [place], [place], [phone], Progress Notes * Shahida GOLDB:[birth year] (78 yo M)Acc No.[id number]:01/03/2024 Progress Notes Patient:?Ashwin Gold Provider:?Eliseo Campos MD :1945???Age:78 Y???Sex:Male Anderson e:01/03/2024 Address:[address], [facility], [id number] Subjective: * Chief Complaints: * ???6 months * HPI: ???Symptom(s):? patient is a 78 yo male here for follow up of diabetes. * ROS:?General/Constitutional:?Denies?Chills.?Denies?Fatigue.?Denies?Fever.?Denies?Headache.?ENT:?Patient denies?decreased sense of smell , any loss of taste , sore throat.?Denies?Sore throat.?Endocrine:?Denies?Difficulty sleeping.?Denies?Dizziness.?Denies?Excessive sweating.?Denies?Excessive thirst.?Denies?Frequent urination.?Respiratory:?Denies?Cough.?Denies?Shortness of breath at rest.?Denies?Shortness of breath with exertion.?Gastrointestinal:?Denies?Diarrhea.?Denies?Nausea.?Musculoskeletal:?Patient denies?muscle aches.?Peripheral Vascular:?Patient denies?red and blue toes.? * Medical History:? * Surgical History:? * Hospitalization/Major Diagno stic Procedure:? * Medications:?TakingOmeprazol e 20 MG Capsule Delayed Release TAKE 1 [...] reviewed and reconciled with the patient * Allergies:?N.K.D.A.yes[Aller gies Verified] Objective: * Vitals:?Ht: 67.5, Wt:209, BM I:32.25, BP:138/76 weight is down 1 pound since 10-04-23. * ???Past Orders: ???Lab:Hemoglobin A1c (Order Date - 12/27/2023) (Collection Date - 12/27/2023) ? Value Reference Range ?Hemoglobin A1c % 7.6 H <6. 0 - % ?Estimated Average Glucose 171 - mg/dL ???Lab:Liver Panel (Order Da te - 12/27/2023) (Collection Date - 12/27/2023) ? Value Reference Range ?Bilirubin Total 1.1 H 0.0- 1.0 - mg/dL ?Bilirubin Direct 0.3 0.0 -0.5 - mg/dL ?Aspartate Amino Transferase 26 5-37 - U/L ?Alanine Aminotransferase 30 0-40 - U/L ?Total Protein 6.6 6.5-8. 0 - g/dL ?Albumin Level 4.2 3.5-5. 0 - g/dL ?Alkaline Phosphatase 65 39-117 - U/L ???Lab:Glucose Fasting (Orde r Date - 12/27/2023) (Collection Date - 12/27/2023) ? Value Reference Range ?Glucose Fasting 176 H 60-9 9 - mg/dL ???Lab:Lipid Panel with Refl ex (Order Date - 12/27/2023) (Collection Date - 12/27/2023) ? Value Reference Range ?Triglycerides 173 H <150 - mg/dL ?Cholesterol 119 <200 - m g/dL ?LDL Cholesterol Calculated 51 <100 - mg/dL ?HDL Cholesterol 34 L >40 - mg/dL * Examination: ???General Examination: ?GENERAL APPEARANCE:?alert, well hydrated, in no distress.?HEAD:?normocephalic.?SKIN:?good turgor.?HEART:?regular rate and rhythm , no murmurs, rubs, gallops.?LUNGS:?no wheezes, rales, rhonchi , good air movement , clear to auscultation bilaterally.? Assessment: * Assessment: 1.?Hypercholesterolemia - E7 8.00 (Primary)?2.?Type 2 diabetes mellitus without complication, without long-term current use of insulin - E11.9?3.?Essential hypertension - I10? Plan: * Treatment: 2.?Type 2 diabetes mellitus without complication, without long-term current use of insulin? Continue metFORMIN HCl Tablet, 500 MG, TAKE 2 TABLETS BY MOUTH TWICE A DAY WITH MEALS.?? Notes: has an improvement in a1c, will contiue current regiment?? 3.?Essential hypertension? Continue amLODIPine Besylate Tablet, 5 MG, TAKE 1 TABLET BY MOUTH EVERY DAY;?Continue Lisinopril-hydroCHLOROthiazide Tablet, 20-12.5 MG, TAKE 1 TABLET BY MOUTH EVERY DAY.?? Notes: stable, will continue current regiment?? * Procedure Codes:? * * Sign off status: Completed true * Provider:?Eliseo Campos MD Date:?1 03/04/2023 Generated for Gerardo waite/Bernardino/eTransmitting on:?07/03/2024 11:52 AM EDT History and Physical Notes * HPI (History [...]
--- OUTSIDE RECORDS SUMMARY | 2024-07-03 11:52 | XMS_ITS ---
Author Organization Eliseo Campos MD Address [address] [place], [place] [id number] Care Team Providers Care Soda Flaker Name Role Phone Eliseo Campos Primary Care Provider [phone] Results Component Value Reference Range Notes Complete Blood Count Auto Di ff (Not yet reviewed by provider) Interpretation: Performing Lab:[facility], [address] [place] [phone] Notes/Report: White Blood Count 7.2 4.8-10.8 X10*3/uL [...] NRBC Abs Auto 0.000 0.0-0.012 X10*3/uL Comprehensive Silas. Panel Fa st (Not yet reviewed by provider) Interpretation: Performing Lab:[facility], [address] [place] [phone] Notes/Report: Sodium 138 135-145 mmol/L Potassium 4.0 [...] yet reviewe d by provider) Interpretation: Performing Lab:[facility], [address] [place] [phone] Notes/Report: Triglycerides 143 <150 mg/dL Desirable Triglyceride: [...] t yet reviewed by provider) Interpretation: Performing Lab:[address] [phone] Notes/Report: PSA,Total (Free>4and<10) 1.75 0.00-4.00 ng/mL A [...] (Not yet reviewed by provider) Interpretation: Performing Lab:[address] [phone] Notes/Report: TSH reflex Free T4 3.02 0.32-4.0 uIU/mL Hemoglobin A1c (Not yet revi ewed by provider) Interpretation: Performing Lab:[address] [phone] Notes/Report: Hemoglobin A1c % 8.3 <6.0 % [...] average glucose, using the formula of the A1Z-Blunrag Average Glucose study (ADAG), Diabetes Care, Vol.31,#8, 2007 UA ClnCatch+Micro w/rflx Cul t (Not yet reviewed by provider) Interpretation: Performing Lab:[facility], [address] [place] [phone] Notes/Report: Urine, Clean Catch Color Urine Yellow Appearance Urine Clear PH 5.5 5.0-9.0 Glucose Urine UA Negative Negative mg/dL Urine Blood Negative Negative Specific Gibbs - Urine 1.025 1.005-1.025 Urine Protein Trace [...] Date Provider Diagnosis Eliseo Campos MD [address] [facility] [address] [place], [place] [phone] 07/03/2024 Eliseo Campos Hypercholesterolemia E78.00 ; Type [...] Treatment Pending Test Test Name Order Date Complete Blood Count Auto Diff Comprehensive Silas. Panel Fast Lipid Panel 07/03/2024 PSA,Total (Free>4and<10) 07/03/2024 TSH reflex Free T4 07/03/2024 Microalbumin, Random 07/03/2024 Hemoglobin A1c 07/03/2024 UA ClnCatch+Micro w/rflx Cult 07/03/2024 Next Appt Details Provider Name:Eliseo Mi ier, 07/10/2024 11:00:00 AM, [address], [address], [place], [place], [phone], Progress Notes * BRAYANAshwin REIDDOB:[birth year] (78 yo M)Acc No.[id number]:07/03/2024 Progress Note Patient:?Ashwin GOLD Provider:?Eliseo Campos MD :1945???Age:78 Y???Sex:Male Anderson e:07/03/2024 Address:[address] [place] [address] , [facility], [id number] Subjective: * Chief Complaints: * ???1. Yearly fasting labs. * Medical History:? Objective: * Vitals:? Assessment: * Assessment: 1.?Hypercholesterolemia - E7 8.00 (Primary)???2.?Type 2 diabetes mellitus without complication, without long-term current use of insulin - E11.9???3.?Acquired hypothyroidism - E03.9???4.?Essential hypertension - I10??? Plan: * Treatment: 2.?Type 2 diabetes mellitus without complication, without long-term current use of insulin?LAB: Complete Blood Count Auto Diff (Collection Date & Time - 07/03/2024 07:30 AM) ?LAB: Comprehensive Silas. Panel Fast (Collection Date & Time - 07/03/2024 07:30 AM) ?LAB: Lipid Panel (Collection Date & Time - 07/03/2024 07:30 AM) ?LAB: PSA,Total (Free>4and<10) (Collection Date & Time - 07/03/2024 07:30 AM) ?LAB: TSH reflex Free T4 (Collection Date & Time - 07/03/2024 07:30 AM) ?LAB: Microalbumin, Random ?LAB: Hemoglobin A1c (Collection Date & Time - 07/03/2024 07:30 AM) ?LAB: UA ClnCatch+Micro w/rflx Cult (Collection Date & Time - 07/03/2024 07:30 AM) 3.?Acquired hypothyroidism?LAB: Complete Blood Count Auto Diff (Collection Date & Time - 07/03/2024 07:30 AM) ?LAB: Comprehensive Silas. Panel Fast (Collection Date & Time - 07/03/2024 07:30 AM) ?LAB: Lipid Panel (Collection Date & Time - 07/03/2024 07:30 AM) ?LAB: PSA,Total (Free>4and<10) (Collection Date & Time - 07/03/2024 07:30 AM) ?LAB: TSH reflex Free T4 (Collection Date & Time - 07/03/2024 07:30 AM) ?LAB: Microalbumin, Random ?LAB: Hemoglobin A1c (Collection Date & Time - 07/03/2024 07:30 AM) ?LAB: UA ClnCatch+Micro w/rflx Cult (Collection Date & Time 07/03/2024 07:30 AM) 4.?Essential hypertension?LAB: Complete Blood Count Auto Diff (Collection Date & Time 07/03/2024 07:30 AM) ?LAB: Comprehensive Silas. Panel Fast (Collection Date & Time 07/03/2024 07:30 AM) ?LAB: Lipid Panel (Collection Date & Time 07/03/2024 07:30 AM) ?LAB: PSA,Total (Free>4and<10) (Collection Date & Time - 07/03/2024 07:30 AM) ?LAB: TSH reflex Free T4 (Collection Date & Time - 07/03/2024 07:30 AM) ?LAB: Microalbumin, Random ?LAB: Hemoglobin A1c (Collection Date & Time 07/03/2024 07:30 AM) ?LAB: UA ClnCatch+Micro w/rflx Cult (Collection Date & Time - 07/03/2024 07:30 AM) * Procedure Codes:?02668 VENIP UNCT, ROUTINE* * * The named appointment provid er may or may not be the originator of this progress note, and it is not deemed complete until electronically signed by the appointment provider. Sign off status: Pending * Provider:?Eliseo Campos MD Date:?0 07/03/2024 Generated for Gerardo waite/Bernardino/Roxieitting on:?07/03/2024 11:52 AM EDT
[2024-07-03 12:01] LABS: Creatinine Urine 190.74 mg/dL; Microalbum/Creatinine Ratio Ur 17.8 ug/mg cr (<30)
== END 2024-07-03 10:46 | disposition home or self-care (01) ==
LOC: HO.LNP 10:45
PROVIDERS: Visit Provider Internal Medicine
DX: E78.00 Pure hypercholesterolemia, unspecified (principal); E11.9 Type 2 diabetes mellitus without complications; E03.9 Hypothyroidism, unspecified; I10 Essential (primary) hypertension; Z12.5 Encounter for screening for malignant neoplasm of prostate
CPT/HCPCS: 80053; 80061; 81001; 82043; 82570; 83036; 84153; 84443; 85025

== ENCOUNTER 2024-12-26 11:08 | Outpatient (REF) | payer MEDICARE, MEDICAID, SELFPAY ==
--- OUTSIDE RECORDS SUMMARY | 2023-09-07 04:45 | XMS_ITS ---
Author Organization Eliseo Campos MD Address 10 [facility] [address] [place] [phone] Care Team Providers Care Business Services Manager Name Role Phone Eliseo Campos Primary Care Provider [phone] REASON FOR VISIT refill Medications Medication SIG (Take, Route, Fr equency, Duration) Notes Start Date End Date Status FreeStyle Lancets - as directed for 90 days 2020 Active Encounters Encounter Location Date Provider Diagnosis Eliseo Campos MD 10 [facility] [address] [place] [phone] 09/07/2023 Eliseo Campos Plan Of Treatment Medication Medication Name Sig Start Date Stop Date Notes FreeStyle Lancets - as directed for 90 days 06/03/2020 Next Appt Details Provider Name:Eliseo lovett, 01/06/2025 01:30:00 PM, [address] [place] [address], [address] [place] [address], [phone], Provider Name:Eliseo lovett, 01/08/2025 02:00:00 PM, [address] [place] [address], [address], [phone], Provider Name:Eliseo lovett, 07/10/2025 07:30:00 AM, [address] [place] [address], [address], [phone], Provider Name:Eliseo Mi bony, 07/17/2025 01:00:00 PM, [address], [address], [place], [place], [phone], Progress Notes * Ashwin GOLDDOB:[birth year] (78 yo M)Acc No.[id number]:09/07/2023 Patient: Lamar Ashwin hull :1945 A ge:78 Y S ex:Male Address:[address] [place] [address] , [place], [address] * Refills Refill FreeStyle Lancets Miscellaneous, -, 100, as directed, 90 days, Refills=3 * true * Date: Generated for Gerardo waite/Bernardino/Roxieitting on: 02/26/2024 01:26 PM EST
--- OUTSIDE RECORDS SUMMARY | 2023-10-04 05:15 | XMS_ITS ---
Author Organization Eliseo Campos MD Address [address] [place], [place] [phone] Care Team Providers Care Photography Sales Associate Name Role Phone Eliseo Campos Primary Care Provider [phone] Allergies No Known Allergies Results Component Value Reference Range Notes Hemoglobin A1c Reviewed date:10/04/2023 10:15:28 AM Interpretation: Performing Lab: Notes/Report: Hemoglobin A1c 8.0 Glucose, finger stick Reviewed date:10/04/2023 10:10:01 AM Interpretation: Performing Lab: Notes/Report: Value 143 REASON FOR VISIT 3 months Medications Medication SIG (Take, Route, Frequency, Duration) Notes Start Date End Date Status metFORMIN HCl 500 MG TAKE 2 TABLETS BY M OUTH TWICE A DAY WITH MEALS Active amLODIPine Besylate 5 MG TAKE 1 TABLET B Y MOUTH EVERY DAY Active Atorvastatin Calcium 40 MG TAKE 1 TABLET BY MOUTH EVERY DAY Active Lisinopril-hydroCHLOROthiazi de 20-12.5 MG TAKE 1 TABLET BY MOUTH EVERY DAY Active FreeStyle Lancets - as directed for 90 days 2020 Active FreeStyle Lite Test - USE TO TEST BLOOD SUGAR ONCE A DAY for 90 Active Rybelsus 7 MG TAKE 1 TABLET BY GHASSAN TH ONCE A DAY AT LEAST 30 MINUTES BEFORE FIRST FOOD, BEVERAGE OR OTHER ORAL MEDS for 90 Active Omeprazole 20 MG TAKE 1 CAPSULE BY MO UTH EVERY DAY 30 MINUTES BEFORE MORNING MEAL FOR 30 DAYS for 90 Active Levothyroxine Sodium 75 MCG TAKE 1 TABLE T BY MOUTH EVERY DAY IN THE MORNING ON AN EMPTY STOMACH Active Vital Signs Blood pressure systolic 124 mm Hg 10/04/19 24 Blood pressure diastolic 70 mm Hg 024 Height 67.5 in 10/04/2023 Weight 210 lbs 10/04/2023 BMI 32.40 kg/m2 10/04/2023 weight is down 5 pounds [facility] e 07-05-23 Encounters Encounter Location Date Provider Diagnosis Eliseo Campos MD [address] [place], [place] [phone] 10/04/2023 Eliseo Campos Type 2 diabetes mellitus without complication, without long-term current use of insulin E11.9 ; Essential hypertension I10 ; Pain in right shoulder M25.511 and Pain in left shoulder M25.512 Assessments Encounter Date Diagnosis (ICD Code) Assessment Notes Treatment Notes Treatment Clinical Notes Section Notes 10/04/2023 Type 2 diabetes mellitus without complication, without long-term current use of insulin (ICD-10 - E11.9) discussed ozempic but is improving so will observe, will continue curent regiment 10/04/2023 Essential hypertension (ICD-10 - I10) stable, will contiue current regiment 10/04/2023 Pain in right shoulder (ICD-10 - M25.511) 10/04/2023 Pain in left shoulder (ICD-10 - M25.512) advised him to continue exercise as he seems to get better with being active Plan Of Treatment Medication Medication Name Sig Start Date Stop Date Notes metFORMIN HCl 500 MG TAKE 2 TABLETS BY M OUTH TWICE A DAY WITH MEALS amLODIPine Besylate 5 MG TAKE 1 TABLET B Y MOUTH EVERY DAY Lisinopril-hydroCHLOROthiazi de 20-12.5 MG TAKE 1 TABLET BY MOUTH EVERY DAY Treatment Notes Assessment Notes Type 2 diabetes mellitus wit hout complication, without long-term current use of insulin discussed ozempic but is improving so will observe, will continue curent regiment Essential hypertension stable, will cont iue current regiment Pain in left shoulder advised him to con tinue exercise as he seems to get better with being active Next Appt Details Provider Name:Eliseo lovett, 01/06/2025 01:30:00 PM, [address], [address], [place], [phone], Provider Name:Eliseo Mi ier, 01/08/2025 02:00:00 PM, [address], [address], [place], [place], [phone], Provider Name:Eliseo Mi ier, 07/10/2025 07:30:00 AM, [address], [address], [place], [place], [phone], Provider Name:Eliseo Mi ier, 07/17/2025 01:00:00 PM, [address], [address], [place], [place], [phone], Progress Notes * Ashwin GOLDDOB:[birth year] (78 yo M)Acc No.[id number]:10/04/2023 Progress Notes Patient: Ashwin Serna Provider: Latrice Campos MD :1945 A ge:78 Y S ex:Male Date:10/04/2023 [facility], [facility] Subjective: * Chief Complaints: * 3 months * HPI: S ymptom(s): patient is 78 yo male here for 3 month follow up. 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 does better with activity. * ROS: G eneral/Constitutional: Denies C hills. D enies F atigue. D enies F ever. D enies H eadache. E NT: Patient denies d ecreased sense of smell , any loss of taste , sore throat. D enies S ore throat. E ndocrine: Denies D ifficulty sleeping. D enies D izziness.?Denies E xcessive sweating. D enies E xcessive thirst. D enies F requent urination. R espiratory: Denies C ough. D enies S hortness of breath at rest. D enies S hortness of breath with exertion. G astrointestinal: Denies D iarrhea. D enies N ausea. M usculoskeletal: Patient denies m uscle aches. P eripheral Vascular: Patient denies r ed and blue toes. * Medical History: * Surgical History: * Hospitalization/Major Diagno stic Procedure: * Medications: T akingOmeprazole 20 MG Capsule Delayed Release TAKE 1 CAPSULE BY MOUTH EVERY DAY 30 MINUTES BEFORE MORNING MEAL FOR 30 DAYS FreeStyle Lite Test - Strip USE TO TEST BLOOD SUGAR ONCE A DAY Rybelsus 7 MG Tablet TAKE 1 TABLET BY MOUTH ONCE A DAY AT LEAST 30 MINUTES BEFORE FIRST FOOD, BEVERAGE OR OTHER ORAL MEDS metFORMIN HCl 500 MG Tablet TAKE 2 TABLETS BY MOUTH TWICE A DAY WITH MEALS Levothyroxine Sodium 75 MCG Tablet TAKE 1 TABLET BY MOUTH EVERY DAY IN THE MORNING ON AN EMPTY STOMACH Atorvastatin Calcium 40 MG Tablet TAKE 1 TABLET BY MOUTH EVERY DAY amLODIPine Besylate 5 MG Tablet TAKE 1 TABLET BY MOUTH EVERY DAY Lisinopril- hydroCHLOROthiazide 20-12.5 MG Tablet TAKE 1 TABLET BY MOUTH EVERY DAY FreeStyle Lancets - Miscellaneous as directed Taking Omeprazole 20 MG Capsule Delayed Release TAKE 1 CAPSULE BY MOUTH EVERY DAY 30 MINUTES BEFORE MORNING MEAL FOR 30 DAYS Taking FreeStyle Lite Test - Strip USE TO TEST BLOOD SUGAR ONCE A DAY Taking Rybelsus 7 MG Tablet TAKE 1 TABLET BY MOUTH ONCE A DAY AT LEAST 30 MINUTES BEFORE FIRST FOOD, BEVERAGE OR OTHER ORAL MEDS Taking metFORMIN HCl 500 MG Tablet TAKE 2 TABLETS BY MOUTH TWICE A DAY WITH MEALS Taking Levothyroxine Sodium 75 MCG Tablet TAKE 1 TABLET BY MOUTH EVERY DAY IN THE MORNING ON AN EMPTY STOMACH Taking Atorvastatin Calcium 40 MG Tablet TAKE 1 TABLET BY MOUTH EVERY DAY Taking amLODIPine Besylate 5 MG Tablet TAKE 1 TABLET BY MOUTH EVERY DAY Taking Lisinopril-hydroCHLOROthiazide 20-12.5 MG Tablet TAKE 1 TABLET BY MOUTH EVERY DAY Taking FreeStyle Lancets - Miscellaneous as directed * Allergies: N .K.D.A.yes[Allergies Verified] Objective: * Vitals: H t: 67.5, Wt:210, BMI:32.40, BP:124/70 weight is down 5 pounds since 07-05-23. * Examination: G eneral Examination: GENERAL APPEARANCE: alert, well hydrated, in no distress , male. SKIN: good turgor. HEART: regular rate and rhythm, no murmurs, rubs, gallops. LUNGS: no wheezes, rales, rhonchi, good air movement, clear to auscultation bilaterally. Assessment: * Assessment: 1. T ype 2 diabetes mellitus without complication, without long-term current use of insulin - E11.9 (Primary) 2 . E ssential hypertension - I10 3 . P ain in right shoulder - M25.511 4 . P ain in left shoulder - M25.512 Plan: * Treatment: Value Reference Range H emoglobin A1c 8.0 * Eloisa Wilkerson 4 10:15:26 AM EDT > ?LAB: Glucose, finger stick* Value Reference Range V alue 143 * EfegricelEzraEloisa B 4 10:09:59 AM EDT > Notes: discussed ozempic but is improving so will observe, will continue curent regiment.? 2.?Essential hypertension? Continue amLODIPine Besylate Tablet, 5 MG, TAKE 1 TABLET BY MOUTH EVERY DAY;?Continue Lisinopril-hydroCHLOROthiazide Tablet, 20-12.5 MG, TAKE 1 TABLET BY MOUTH EVERY DAY.?? Notes: stable, will contiue current regiment.??3.?Pain in left shoulder? Notes: advised him to continue exercise as he seems to get better with being active.?? * Procedure Codes: 8 2947 ASSAY, GLUCOSE, BLOOD QUANT, Modifiers: QW 45469 GLYCATED HEMOGLOBIN TEST, Modifiers: QW * * Sign off status: Completed true * Provider: Latrice Campos MD Date: 0 10/04/2023 Generated for Gerardo waite/Bernardino/eTrachelsmitting on: 1 02/26/2024 01:26 PM EST History and Physical Notes * HPI (History of Present Illness) Category Sub-Category Detail Notes Category Not es Symptom(s) patient is 78 y o male here for 3 month follow up. 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 does better with activity Examination Category Sub-Category Detail Notes Category Not es General Examination GENERAL APPEARANCE: alert, w ell hydrated, in no distress , male HEART: regular rate and rhy thm, no murmurs, rubs, gallops LUNGS: no wheezes, rales, r honchi, good air movement, clear to auscultation bilaterally SKIN: good turgor
--- OUTSIDE RECORDS SUMMARY | 2023-12-20 05:18 | XMS_ITS ---
Author Organization Eliseo Campos MD Address [address] [place] [phone] Care Team Providers Care Sign Carpenter Name Role Phone Eliseo Campos Primary Care Provider [phone] REASON FOR VISIT refill Medications Medication SIG (Take, Route, Frequency, Duration) Notes Start Date End Date Status Atorvastatin Calcium 40 MG TAKE 1 TABLET BY MOUTH EVERY DAY Orally Once a day for 90 days Active FreeStyle Lite Test - USE TO TEST BLOOD SUGAR ONCE A DAY In Vitro for 90 days Active Encounters Encounter Location Date Provider Diagnosis Eliseo Campos MD 10 [facility] [address] [place] [phone] 12/20/2023 Eliseo Campos Hypercholesterolemia E78.00 Assessments Encounter Date Diagnosis (ICD Code) Assessment Notes Treatment Notes Treatment Clinical Notes Section Notes 12/20/2023 Hypercholesterolemia (ICD-10 - E78.00) Plan Of Treatment Medication Medication Name Sig Start Date Stop Date Notes Atorvastatin Calcium 40 MG TAKE 1 TABLET BY MOUTH EVERY DAY Orally Once a day for 90 days FreeStyle Lite Test - USE TO TEST BLOOD SUGAR ONCE A DAY In Vitro for 90 days Next Appt Details Provider Name:Eliseo lovett, 01/06/2025 01:30:00 PM, 10 [facility], Suite [facility], [place], [place], [phone], Provider Name:Eliseo lovett, 01/08/2025 02:00:00 PM, [address] [facility] [address], [address], [place], [place], [phone], Provider Name:Eliseo Mi ier, 07/10/2025 07:30:00 AM, [address] [facility] [address], [address], [place], [place], [phone], Provider Name:Eliseo Mi ier, 07/17/2025 01:00:00 PM, [address] [facility] [address], [address], [place], [phone], Progress Notes * BRAYANJEANETTE AshwinDOB:[birth year] (78 yo M)Acc No.[id number]:12/20/2023 Patient: Ashwin Serna :1945 A ge:78 Y S ex:Male Address:[address] [place] [address] , [place], [address] * Refills Refill Atorvastatin Calcium Tablet, 40 MG, Orally, 90, TAKE 1 TABLET BY MOUTH EVERY DAY, Once a day, 90 days, Refills=3 Refill FreeStyle Lite Test Strip, -, In Vitro, 100 Strip, USE TO TEST BLOOD SUGAR ONCE A DAY, 90 days, Refills=3 * true * Date: Generated for Gerardo waite/Bernardino/Roxieitting on: 02/26/2024 01:26 PM EST
--- OUTSIDE RECORDS SUMMARY | 2023-12-27 02:00 | XMS_ITS ---
Author Organization Eliseo Campos MD Address [address] [place], [place] [phone] Care Team Providers Care Career And Guidance Counselor Name Role Phone Eliseo Campos Primary Care Provider Results Component Value Reference Range Notes Liver Panel Reviewed date:12/27/2023 04:39:22 PM Interpretation: Performing Lab:[address] [phone] Notes/Report: Bilirubin Total 1.1 0.0-1.0 mg/dL Bilirubin Direct 0.3 0.0-0.5 mg/dL Aspartate Amino Transferase 26 5-37 U/L Alanine Aminotransferase 30 0-40 U/L Total Protein 6.6 6.5-8.0 g/dL Albumin Level 4.2 3.5-5.0 g/dL Alkaline Phosphatase 65 39-117 U/L Glucose Fasting Reviewed date:12/27/2023 04:44:18 PM Interpretation: Performing Lab:[address] [phone] Notes/Report: Glucose Fasting 176 60-99 mg/dL A fasting glucose of 126 mg/dl or greater on more than one occasion is considered diagnostic of diabetes. Lipid Panel with Reflex Reviewed date:12/27/2023 04:43:57 PM Interpretation: Performing Lab:[facility], [address] [place] [phone] Notes/Report: Triglycerides 173 <150 mg/dL Desirable Triglyceride: less than 150 mg/dL Borderline High Triglyceride 150-199 mg/dL High Triglyceride: 200-499 mg/dL Very High Triglyceride: greater than or equal to 5OO mg/dL Cholesterol 119 <200 mg/dL Desirable Cholesterol: less than 200 mg/dL Borderline High Cholesterol: 200-239 mg/dL High Cholesterol: greater than 239 mg/dL LDL Cholesterol Calculated 51 <100 mg/dL Desirable LDL: less than 100 mg/dL Near Optimal/Above Optimal LDL: 110-129 mg/dL Borderline High LDL: 130-159 mg/dL High LDL: 160-189 mg/dL Very High LDL: greater than or equal to 190 mg/dL HDL Cholesterol 34 >40 mg/dL Desirable HDL: greater than 40 mg/dL Note: This HDL assay may give artificially low results in patients with liver disease. Hemoglobin A1c Reviewed date:12/27/2023 12:40:02 PM Interpretation: Performing Lab:[facility], [address] [place] [phone] Notes/Report: Hemoglobin A1c % 7.6 <6.0 % Hemoglobin A1C Reference Range Adults: 4.8 - 6.0 % Non diabetic: < 6.0 % Goal: < 7.0 % Additional Action Suggested: > 8.0 % Note: Hemoglobin A1c results are invalid for patients with abnormal amounts of HbF. Blood transfusions may impact the HbA1c concentration in the patient sample. Estimated Average Glucose 171 eAG = Estimated average glucose which is %A1C expressed as average glucose, using the formula of the [id number] Average Glucose study (ADAG), Diabetes Care, Vol.31,#8, Sep. 2007 REASON FOR VISIT fasting lipids Encounters Encounter Location Date Provider Diagnosis Eliseo Campos MD [address] [place] [address] [place] [phone] 12/27/2023 Eliseo Campos Hypercholesterolemia E78.00 and Type 2 diabetes mellitus without complication, without long-term current use of insulin E11.9 Assessments Encounter Date Diagnosis (ICD Code) Assessment Notes Treatment Notes Treatment Clinical Notes Section Notes 12/27/2023 Hypercholesterolemia (ICD-10 - E78.00) 12/27/2023 Type 2 diabetes mandeep itus without complication, without long-term current use of insulin (ICD-10 - E11.9) Plan Of Treatment Next Appt Details Provider Name:Eliseo Mi ier, 01/06/2025 01:30:00 PM, [address], [address], [place], [place], [phone], Provider Name:Eliseo Mi ier, 01/08/2025 02:00:00 PM, [address], [address], [place], [place], [phone], Provider Name:Eliseo Mi ier, 07/10/2025 07:30:00 AM, [address], [address], [place], [place], [phone], Provider Name:Eliseo Mi ier, 07/17/2025 01:00:00 PM, [address], [address], [place], [place], [phone], Progress Notes * Ashwin GOLDDOB:[birth year] (79 yo M)Acc No.[id number]:12/27/2023 Progress Note Patient: Ashwin BUSH Provider: Latrice Campos MD :1945 A ge:78 Y S ex:Male Date:12/27/2023 Address:[address] [place] [address] , [facility] Subjective: * Chief Complaints: * 1 . Fasting lipids. * Medical History: Objective: * Vitals: Assessment: * Assessment: 1. H ypercholesterolemia - E78.00 (Primary) 2 . T ype 2 diabetes mellitus without complication, without long-term current use of insulin - E11.9 Plan: * Treatment: 2. T ype 2 diabetes mellitus without complication, without long-term current use of insulin L AB: Liver Panel (Collection Date & Time - 12/27/2023 07:00 AM) L AB: Glucose Fasting (Collection Date & Time - 12/27/2023 07:00 AM) L AB: Lipid Panel with Reflex (Collection Date & Time - 12/27/2023 07:00 AM) L AB: Hemoglobin A1c (Collection Date & Time - 12/27/2023 07:00 AM) * Procedure Codes: 3 6415 VENIPUNCT, ROUTINE* * * The named appointment provid er may or may not be the originator of this progress note, and it is not deemed complete until electronically signed by the appointment provider. Sign off status: Pending * Provider: Latrice Campos MD Date: 02/25/2023 Generated for Gerardo waite/Bernardino/Sveta on: 02/26/2024 01:25 PM EST
--- OUTSIDE RECORDS SUMMARY | 2024-01-03 05:15 | XMS_ITS ---
Author Organization Eliseo Campos MD Address [address] [place], [place] [id number] Care Team Providers Care Financial Retirement Plan Specialist Name Role Phone Eliseo Campos Primary Care Provider Allergies No Known Allergies REASON FOR VISIT 6 months Medications Medication SIG (Take, Route, Frequency, Duration) Notes Start Date End Date Status amLODIPine Besylate 5 MG TAKE 1 TABLET B Y MOUTH EVERY DAY Active Omeprazole 20 MG TAKE 1 CAPSULE BY MO UTH EVERY DAY 30 MINUTES BEFORE MORNING MEAL FOR 30 DAYS for 90 Active Lisinopril-hydroCHLOROthiazi de 20-12.5 MG TAKE 1 TABLET BY MOUTH EVERY DAY Active Levothyroxine Sodium 75 MCG TAKE 1 TABLE T BY MOUTH EVERY DAY IN THE MORNING ON EMPTY STOMACH for 90 Active FreeStyle Lite Test - USE TO TEST BLOOD SUGAR ONCE A DAY In Vitro for 90 days Active metFORMIN HCl 500 MG TAKE 2 TABLETS BY M OUTH TWICE A DAY WITH MEALS Active Atorvastatin Calcium 40 MG TAKE 1 TABLET BY MOUTH EVERY DAY Orally Once a day Active FreeStyle Lite Test - as directed In Vit ro daily for 90 days 01/03/2024 Active FreeStyle Lancets - as directed for 90 days 2020 Active Rybelsus 7 MG TAKE 1 TABLET BY GHASSAN TH ONCE A DAY AT LEAST 30 MINUTES BEFORE FIRST FOOD, BEVERAGE OR OTHER ORAL MEDS for 90 Active Vital Signs Blood pressure systolic 138 mm Hg 01/03/20 24 Blood pressure diastolic 76 mm Hg 024 Height 67.5 in 01/03/2024 Weight 209 lbs 01/03/2024 BMI 32.25 kg/m2 01/03/2024 weight is down 1 pound since 10-04-23 Encounters Encounter Location Date Provider Diagnosis Eliseo Campos MD [address] [place] [address] [address] [place], [place] [phone] 01/03/2024 Eliseo Campos Hypercholesterolemia E78.00 ; Type 2 diabetes mellitus without complication, without long-term current use of insulin E11.9 and Essential hypertension I10 Assessments Encounter Date Diagnosis (ICD Code) Assessment Notes Treatment Notes Treatment Clinical Notes Section Notes 01/03/2024 Hypercholesterolemia (ICD-10 - E78.00) doing well on meds, will cntinue current regiment 01/03/2024 Type 2 diabetes mellitus without complication, without long-term current use of insulin (ICD-10 - E11.9) has an improvement in a1c, will contiue current regiment 01/03/2024 Essential hypertensi on (ICD-10 - I10) stable, will continue current regiment Plan Of Treatment Medication Medication Name Sig Start Date Stop Date Notes amLODIPine Besylate 5 MG TAKE 1 TABLET B Y MOUTH EVERY DAY Lisinopril-hydroCHLOROthiazi de 20-12.5 MG TAKE 1 TABLET BY MOUTH EVERY DAY metFORMIN HCl 500 MG TAKE 2 TABLETS BY M OUTH TWICE A DAY WITH MEALS Atorvastatin Calcium 40 MG TAKE 1 TABLET BY MOUTH EVERY DAY Orally Once a day FreeStyle Lite Test - as directed In Vit ro daily for 90 days 01/03/2024 Treatment Notes Assessment Notes Hypercholesterolemia doing well on meds, will cntinue current regiment Type 2 diabetes mellitus wit hout complication, without long-term current use of insulin has an improvement in a1c, will contiue current regiment Essential hypertension stable, will cont inue current regiment Next Appt Details Provider Name:Eliseo lovett, 01/06/2025 01:30:00 PM, [address] [place] [address], [address], [place], [place], [phone], Provider Name:Eliseo lovett, 01/08/2025 02:00:00 PM, [address] [place] [address], [address], [place], [place], [phone], Provider Name:Eliseo Mi ier, 07/10/2025 07:30:00 AM, [address], [address], [place], [phone], Provider Name:Eliseo Mi ier, 07/17/2025 01:00:00 PM, [address], [address], [place], [place], [phone], Progress Notes * Ashwin GOLDDOB:[birth year] (78 yo M)Acc No.[id number]:01/03/2024 Progress Notes Patient: Ashwin Serna Provider: Latrice Campos MD :1945 A ge:78 Y S ex:Male Date:01/03/2024 Address:[address] [place], [place] [phone] Subjective: * Chief Complaints: * 6 months * HPI: S ymptom(s): patient is a 78 yo male here for follow up of diabetes. * ROS: G eneral/Constitutional: Denies C [place]. [...] MINUTES BEFORE MORNING MEAL FOR 30 DAYS Rybelsus 7 MG Tablet TAKE 1 TABLET BY MOUTH ONCE A DAY AT LEAST 30 MINUTES BEFORE FIRST FOOD, BEVERAGE OR OTHER ORAL MEDS FreeStyle Lancets - Miscellaneous as directed amLODIPine Besylate 5 MG Tablet TAKE 1 TABLET BY MOUTH EVERY DAY Lisinopril-hydroCHLOROthiazide 20-12.5 MG Tablet TAKE 1 TABLET BY MOUTH EVERY DAY metFORMIN HCl 500 MG Tablet TAKE 2 TABLETS BY MOUTH TWICE A DAY WITH MEALS Levothyroxine Sodium 75 MCG Tablet TAKE 1 TABLET BY MOUTH EVERY DAY IN THE MORNING ON EMPTY STOMACH Atorvastatin Calcium 40 MG Tablet TAKE 1 TABLET BY MOUTH EVERY DAY Orally Once a dayFreeStyle Lite Test - Strip USE TO TEST BLOOD SUGAR ONCE A DAY In Vitro Medication List reviewed and reconciled with the patientTaking Omeprazole 20 MG Capsule Delayed Release TAKE 1 CAPSULE BY MOUTH EVERY DAY 30 MINUTES BEFORE MORNING MEAL FOR 30 DAYS Taking Rybelsus 7 MG Tablet TAKE 1 TABLET BY MOUTH ONCE A DAY AT LEAST 30 MINUTES BEFORE FIRST FOOD, BEVERAGE OR OTHER ORAL MEDS Taking FreeStyle Lancets - Miscellaneous as directed Taking amLODIPine Besylate 5 MG Tablet TAKE 1 TABLET BY MOUTH EVERY DAY Taking Lisinopril-hydroCHLOROthiazide 20-12.5 MG Tablet TAKE 1 TABLET BY MOUTH EVERY DAY Taking metFORMIN HCl 500 MG Tablet TAKE 2 TABLETS BY MOUTH TWICE A DAY WITH MEALS Taking Levothyroxine Sodium 75 MCG Tablet TAKE 1 TABLET BY MOUTH EVERY DAY IN THE MORNING ON EMPTY STOMACH Taking Atorvastatin Calcium 40 MG Tablet TAKE 1 TABLET BY MOUTH EVERY DAY Orally Once a dayTaking FreeStyle Lite Test - Strip USE TO TEST BLOOD SUGAR ONCE A DAY In Vitro Medication List reviewed and reconciled with the patient * Allergies: N .K.D.A.yes[Allergies Verified] Objective: * Vitals: H t: 67.5, Wt:209, BMI:32.25, BP:138/76 weight is down 1 pound since 10-04-23. * P ast Orders: L ab:Hemoglobin A1c (Order Date - 12/27/2023) (Collection Date - 12/27/2023) Value Reference Range Hemoglobin A1c % 7.6 H <6.0 - % Estimated Average Glucose 171 - mg/dL L ab:Liver Panel (Order Date - 12/27/2023) (Collection Date - 12/27/2023) Value Reference Range Bilirubin Total 1.1 H 0.0-1.0 - mg/dL Bilirubin Direct 0.3 0.0-0.5 - mg/dL Aspartate Amino Transferase 26 5-37 - U/L Alanine Aminotransferase 30 0-40 - U/L Total Protein 6.6 6.5-8.0 - g/dL Albumin Level 4.2 3.5-5.0 - g/dL Alkaline Phosphatase 65 39-117 - U/L L ab:Glucose Fasting (Order Date - 12/27/2023) (Collection Date - 12/27/2023) Value Reference Range Glucose Fasting 176 H 60-99 - mg/dL L ab:Lipid Panel with Reflex (Order Date - 12/27/2023) (Collection Date - 12/27/2023) Value Reference Range Triglycerides 173 H <150 - mg/dL Cholesterol 119 <200 - mg/dL LDL Cholesterol Calculated 51 <100 - mg/dL HDL Cholesterol 34 L >40 - mg/dL * Examination: G eneral Examination: GENERAL APPEARANCE: a lert, well hydrated, in no distress.? HEAD: n ormocephalic. SKIN: g ood turgor. HEART: r egular rate and rhythm , no murmurs, rubs, gallops. LUNGS: n o wheezes, rales, rhonchi , good air movement , clear to auscultation bilaterally. Assessment: * Assessment: 1. H ypercholesterolemia - E78.00 (Primary) 2 . T ype 2 diabetes mellitus without complication, without long-term current use of insulin - E11.9 3 . E ssential hypertension - I10? Plan: * Treatment: 2. T ype 2 diabetes mellitus without complication, without long-term current use of insulin Continue metFORMIN HCl Tablet, 500 MG, TAKE 2 TABLETS BY MOUTH TWICE A DAY WITH MEALS. Notes: has an improvement in a1c, will contiue current regiment 3. E ssential hypertension Continue amLODIPine Besylate Tablet, 5 MG, TAKE 1 TABLET BY MOUTH EVERY DAY; C ontinue Lisinopril-hydroCHLOROthiazide Tablet, 20-12.5 MG, TAKE 1 TABLET BY MOUTH EVERY DAY. Notes: stable, will continue current regiment * Procedure Codes: * * Sign off status: Completed true * Provider: Latrice Campos MD Date: 03/04/2023 Generated for Gerardo waite/Bernardino/Roxieitting on: 02/26/2024 01:25 PM EST History and Physical Notes * HPI (History of Present Illness) Category Sub-Category Detail Notes Category Not es Symptom(s) patient is a 78 yo male here for follow up of diabetes. Examination Category Sub-Category Detail Notes Category Not es General Examination GENERAL APPEARANCE: alert, w ell hydrated, in no distress HEAD: normocephalic HEART: regular rate and rhy thm , no murmurs, rubs, gallops LUNGS: no wheezes, rales, r honchi , good air movement , clear to auscultation bilaterally SKIN: good turgor
--- OUTSIDE RECORDS SUMMARY | 2024-06-06 06:35 | XMS_ITS ---
Author Organization Eliseo Campos MD Address [address] [place] [phone] Care Team Providers Care Vulcanizer Name Role Phone Eliseo Campos Primary Care Provider REASON FOR VISIT refills Medications Medication SIG (Take, Route, Frequency, Duration) Notes Start Date End Date Status Lisinopril-hydroCHLOROthia zide 20-12.5 MG TAKE 1 TABLET BY MOUTH EVERY DAY for 90 days Active Encounters Encounter Location Date Provider Diagnosis Eliseo Campos MD [address] [place] [phone] 06/06/2024 Eliseo Campos Essential hypertension I10 Assessments Encounter Date Diagnosis (ICD Code) Assessment Notes Treatment Notes Treatment Clinical Notes Section Notes 06/06/2024 Essential hypertension (ICD-10 - I10) Plan Of Treatment Medication Medication Name Sig Start Date Stop Date Notes Lisinopril-hydroCHLOROthiazi de 20-12.5 MG TAKE 1 TABLET BY MOUTH EVERY DAY for 90 days Next Appt Details Provider Name:Eliseo lovett, 01/06/2025 01:30:00 PM, [address] [place] [address], [address] [place] [address], [phone], Provider Name:Eliseo lovett, 01/08/2025 02:00:00 PM, [address] [place] [address], [address], [phone], Provider Name:Eliseo Mi ier, 07/10/2025 07:30:00 AM, [address], [address], [place], [phone], Provider Name:Eliseo Mi helenr, 07/17/2025 01:00:00 PM, [address], [address], [place], [phone], Progress Notes * Ashwin GOLDDOB:[birth year] (78 yo M)Acc No.[id number]:06/06/2024 Patient: Lamar Ashwin TOM :1945 A ge:78 Y S ex:Male Address:[facility] [address], [place], [address] * Refills Refill Lisinopril-hydroCHLOROthiazide Tablet, 20-12.5 MG, 90, TAKE 1 TABLET BY MOUTH EVERY DAY, 90 days, Refills=3 * true * Date: Generated for Gerardo waite/Bernardino/eTrachelsmitting on: 02/26/2024 01:26 PM EST
--- OUTSIDE RECORDS SUMMARY | 2024-07-03 02:30 | XMS_ITS ---
Author Organization Eliseo Campos MD Address [address] [place], [place] [phone] Care Team Providers Care High Risk Case Manager Name Role Phone Eliseo Campos Primary Care Provider Results Component Value Reference Range Notes Complete Blood Count Auto Di ff Reviewed date:07/03/2024 02:33:50 PM Interpretation: Performing Lab:[facility], [address] [place] [phone] Notes/Report: White Blood Count 7.2 4.8-10.8 X10*3/uL Red Blood Count 4.69 4.60-5.80 X10*6/uL Hemoglobin 15.1 14.0-18.0 g/dl Hematocrit 42.3 42.0-52.0 % Mean Corpuscular Volume 90.2 80.0-98.0 fL Mean Corpuscular Hemoglobin 32.2 27.0-33.0 pg Mean Corpuscular HGB Conc 35.7 31.0-36.0 g/dl Red Cell Distribution Width 12.0 11.0-16.0 % Platelet Count 198 160-400 X10*3/uL Mean Platelet Volume 12.9 9.4-12.4 fL Neutrophils Percent Auto 60.3 45-73 % Imm Gran Pct Auto 0.4 0.0-0.4 % Lymphocytes Percent Auto 29.0 20-40 % Monocytes Percent Auto 9.0 2-11 % Eosinophils Percent Auto 1.0 0-4 % Basophils Percent Auto 0.3 0-2 % NRBC Pct Auto 0.0 0.0-0.2 /100WBC Neutrophils Absolute Auto 4.3 2.0-8.3 x10*3/u L Imm Gran Abs Auto 0.03 0.00-0.03 X10*3/uL Lymphocytes Absolute Auto 2.1 1.2-4.9 X10*3/u L Monocytes Absolute Auto 0.6 0.1-1.2 X10*3/uL Eosinophils Absolute Auto 0.1 0.0-0.4 X10*3/u L Basophils Absolute Auto 0.0 0.0-0.2 X10*3/uL NRBC Abs Auto 0.000 0.0-0.012 X10*3/uL Comprehensive [place]. Panel Fa st Reviewed date:07/03/2024 12:55:09 PM Interpretation: Performing Lab:[address] [phone] Notes/Report: Sodium 138 135-145 mmol/L Potassium 4.0 3.3-5.1 mmol/L Chloride 100 96-108 mmol/L Carbon Dioxide 31 22-29 mmol/L Anion Gap 11 12-20 Blood Urea Nitrogen 14 9-16 mg/dL Creatinine 0.98 0.5-1.4 mg/dL Estimated Glomerular Filt Rate > 60 Chronic Kidney Disease: Estimated GFR < 60 mL/min/1.73m2 Severe Kidney Disease: Estimated GFR < 15 mL/min/1.73m2 Glucose Fasting 205 60-99 mg/dL A fasting glucose of 126 mg/dl or greater on more than one occasion is considered diagnostic of diabetes. Calcium 9.3 8.4-10.2 mg/dL Bilirubin Total 1.0 0.0-1.0 mg/dL Aspartate Amino Transferase 19 5-37 U/L Alanine Aminotransferase 26 0-40 U/L Total Protein 6.6 6.5-8.0 g/dL Albumin Level 4.3 3.5-5.0 g/dL Alkaline Phosphatase 67 39-117 U/L Lipid Panel Reviewed date:07/03/2024 12:47:20 PM Interpretation: Performing Lab:[address] [phone] Notes/Report: Triglycerides 143 <150 mg/dL Desirable Triglyceride: less than 150 mg/dL Borderline High Triglyceride 150-199 mg/dL High Triglyceride: 200-499 mg/dL Very High Triglyceride: greater than or equal to 5OO mg/dL Cholesterol 118 <200 mg/dL Desirable Cholesterol: less than 200 mg/dL Borderline High Cholesterol: 200-239 mg/dL High Cholesterol: greater than 239 mg/dL LDL Cholesterol Calculated 59 <100 mg/dL Desirable LDL: less than 100 mg/dL Near Optimal/Above Optimal LDL: 110-129 mg/dL Borderline High LDL: 130-159 mg/dL High LDL: 160-189 mg/dL Very High LDL: greater than or equal to 190 mg/dL HDL Cholesterol 31 >40 mg/dL Desirable HDL: greater than 40 mg/dL Note: This HDL assay may give artificially low results in patients with liver disease. PSA,Total (Free>4and<10) Reviewed date:07/03/2024 12:46:44 PM Interpretation: Performing Lab:[address] [phone] Notes/Report: PSA,Total (Free>4and<10) 1.75 0.00-4.00 ng/mL A Free PSA was not performed: The percentage of Free PSA can be used to enhance the differentiation of prostate cancer from benign prostatic disease in subjects whose PSA levels are between 4.0 and 10.0 ng/mL. For subjects whose PSA levels are below 4.0 or above 10.0 ng/mL, the risk of prostate cancer is determined on the basis of the PSA alone. Therefore the % Free PSA is recommended only for those subjects whose PSA levels are between 4.0 and 10.0 ng/mL. PSA methodology: Dawkins Alinity i Chemiluminescent Microparticle Immunoassay (CMIA) TSH reflex Free T4 Reviewed date:07/03/2024 12:46:54 PM Interpretation: Performing Lab:[address] [phone] Notes/Report: TSH reflex Free T4 3.02 0.32-4.0 uIU/mL Microalbumin, Random Reviewed date:07/03/2024 12:47:01 PM Interpretation: Performing Lab:[address] [phone] Notes/Report: Creatinine Urine 190.74 Microalbumin Urine 34.0 Microalbum/Creatinine Ratio Ur 17.8 <30 ug/mg cr Albumin/Creatinine Ratio Reference Ranges: Normal: < 30 ug/mg creatinine Microalbuminuria: 30 - 300 ug/mg creatinine Clinical Albuminuria: > 300 ug/mg creatinine Hemoglobin A1c Reviewed date:07/03/2024 12:46:36 PM Interpretation: Performing Lab:[facility], [address] [place] [phone] Notes/Report: Hemoglobin A1c % 8.3 <6.0 % Hemoglobin A1C Reference Range Adults: 4.8 - 6.0 % Non diabetic: < 6.0 % Goal: < 7.0 % Additional Action Suggested: > 8.0 % Note: Hemoglobin A1c results are invalid for patients with abnormal amounts of HbF. Blood transfusions may impact the HbA1c concentration in the patient sample. Estimated Average Glucose 192 eAG = Estimated average glucose which is %A1C expressed as average glucose, using the formula of the [id number] Average Glucose study (ADAG), Diabetes Care, Vol.31,#8, Sep. 2007 UA ClnCatch+Micro w/rflx Cul t Reviewed date:07/03/2024 02:34:08 PM Interpretation: Performing Lab:[facility], [address] [place] [phone] Notes/Report: Urine, Clean Catch Color Urine Yellow Appearance Urine Clear PH 5.5 5.0-9.0 Glucose Urine UA Negative Negative mg/dL Urine Blood Negative Negative Specific [place] - Urine 1.025 1.005-1.025 Urine Protein Trace Neg-Trace mg/dL Urine Ketones Trace Negative mg/dL Nitrite Urine Negative Negative Leukocyte Esterase Urine Negative Negative RBC Urine 0-2 0-2 /HPF WBC Urine 0-5 0-5 /HPF Squamous Epithelial Cell Urine 0-2 0-2 /HPF Bacteria Urine None Seen None Seen Hyaline Casts Urine 0-2 0-2 /LPF REASON FOR VISIT yearly fasting labs Encounters Encounter Location Date Provider Diagnosis Eliseo Campos MD [address] [place], [place] [phone] 07/03/2024 Eliseo Campos Hypercholesterolemia E78.00 ; Type 2 diabetes mellitus without complication, without long-term current use of insulin E11.9 ; Acquired hypothyroidism E03.9 and Essential hypertension I10 Assessments Encounter Date Diagnosis (ICD Code) Assessment Notes Treatment Notes Treatment Clinical Notes Section Notes 07/03/2024 Hypercholesterolemia (ICD-10 - E78.00) 07/03/2024 Type 2 diabetes mandeep itus without complication, without long-term current use of insulin (ICD-10 - E11.9) 07/03/2024 Acquired hypothyroid ism (ICD-10 - E03.9) 07/03/2024 Essential hypertensi on (ICD-10 - I10) Plan Of Treatment Next Appt Details Provider Name:Eliseo lovett, 01/06/2025 01:30:00 PM, [address] [place] [address], [address], [phone], Provider Name:Eliseo lovett, 01/08/2025 02:00:00 PM, [address] [place] [address], [address], [phone], Provider Name:Eliseo lovett, 07/10/2025 07:30:00 AM, [address] [place] [address], [address], [phone], Provider Name:Eliseo cervantesr, 07/17/2025 01:00:00 PM, [address] [place] [address], [address], [phone], Progress Notes * Ashwin GOLDDOB:[birth year] (79 yo M)Acc No.[id number]:07/03/2024 Progress Note Patient: Ashwin BUSH Provider: Latrice Campos MD :1945 A ge:78 Y S ex:Male Date:07/03/2024 Address:[facility] [address], [place], [place] Subjective: * Chief Complaints: * 1 . Yearly fasting labs. * Medical History: Objective: * Vitals: Assessment: * Assessment: 1. H ypercholesterolemia - E78.00 (Primary) 2 . T ype 2 diabetes mellitus without complication, without long-term current use of insulin - E11.9 3 . A cquired hypothyroidism - E03.9 4 . E ssential hypertension - I10 Plan: * Treatment: 2. T ype 2 diabetes mellitus without complication, without long-term current use of insulin L AB: Complete Blood Count Auto Diff (Collection Date & Time - 07/03/2024 07:30 AM) L AB: Comprehensive [place]. Panel Fast (Collection Date & Time - 07/03/2024 07:30 AM) L AB: Lipid Panel (Collection Date & Time - 07/03/2024 07:30 AM) L AB: PSA,Total (Free>4and<10) (Collection Date & Time - 07/03/2024 07:30 AM) L AB: TSH reflex Free T4 (Collection Date & Time - 07/03/2024 07:30 AM) L AB: Microalbumin, Random (Collection Date & Time - 07/03/2024 07:30 AM) L AB: Hemoglobin A1c (Collection Date & Time - 07/03/2024 07:30 AM) L AB: UA ClnCatch+Micro w/rflx Cult (Collection Date & Time - 07/03/2024 07:30 AM) 3. A cquired hypothyroidism L AB: Complete Blood Count Auto Diff (Collection Date & Time - 07/03/2024 07:30 AM) L AB: Comprehensive [place]. Panel Fast (Collection Date & Time - 07/03/2024 07:30 AM) L AB: Lipid Panel (Collection Date & Time - 07/03/2024 07:30 AM) L AB: PSA,Total (Free>4and<10) (Collection Date & Time - 07/03/2024 07:30 AM) L AB: TSH reflex Free T4 (Collection Date & Time - 07/03/2024 07:30 AM) L AB: Microalbumin, Random (Collection Date & Time - 07/03/2024 07:30 AM) L AB: Hemoglobin A1c (Collection Date & Time - 07/03/2024 07:30 AM) L AB: UA ClnCatch+Micro w/rflx Cult (Collection Date & Time - 07/03/2024 07:30 AM) 4. E ssential hypertension L AB: Complete Blood Count Auto Diff (Collection Date & Time - 07/03/2024 07:30 AM) L AB: Comprehensive [place]. Panel Fast (Collection Date & Time - 07/03/2024 07:30 AM) L AB: Lipid Panel (Collection Date & Time - 07/03/2024 07:30 AM) L AB: PSA,Total (Free>4and<10) (Collection Date & Time - 07/03/2024 07:30 AM) L AB: TSH reflex Free T4 (Collection Date & Time - 07/03/2024 07:30 AM) L AB: Microalbumin, Random (Collection Date & Time - 07/03/2024 07:30 AM) L AB: Hemoglobin A1c (Collection Date & Time - 07/03/2024 07:30 AM) L AB: UA ClnCatch+Micro w/rflx Cult (Collection Date & Time - 07/03/2024 07:30 AM) * Procedure Codes: 3 6415 VENIPUNCT, ROUTINE* * * The named appointment provid er may or may not be the originator of this progress note, and it is not deemed complete until electronically signed by the appointment provider. Sign off status: Pending * Provider: Latrice Campos MD Date: 0 07/03/2024 Generated for Gerardo waite/Bernardino/Roxieitting on: 1 02/26/2024 01:27 PM EST
--- OUTSIDE RECORDS SUMMARY | 2024-07-10 06:00 | XMS_ITS ---
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 Name Role Phone Eliseo Campos Primary Care Provider Allergies No Known Allergies REASON FOR VISIT review labs Medications Medication SIG (Take, Route, Frequency, Duration) Notes Start Date End Date Status Atorvastatin Calcium 40 MG TAKE 1 TABLET BY MOUTH EVERY DAY Orally Once a day Active amLODIPine Besylate 5 MG TAKE 1 TABLET B Y MOUTH EVERY DAY Active Lisinopril-hydroCHLOROthiazi de 20-12.5 MG TAKE 1 TABLET BY MOUTH EVERY DAY Active FreeStyle Lite Test - USE TO TEST BLOOD SUGAR ONCE A DAY In Vitro for 90 days Active FreeStyle Lite Test - as directed In Vit ro daily for 90 days 01/03/2024 Active Rybelsus 14 MG TAKE 1 TABLET BY GHASSAN TH ONCE A DAY AT LEAST 30 MINUTES BEFORE FIRST FOOD, BEVERAGE OR OTHER ORAL MEDS for 90 days Active FreeStyle Lancets - as directed for 90 days 2020 Active Levothyroxine Sodium 75 MCG TAKE 1 TABLE T BY MOUTH EVERY DAY IN THE MORNING ON EMPTY STOMACH Active Omeprazole 20 MG TAKE 1 CAPSULE BY MO UTH EVERY DAY 30 MINUTES BEFORE MORNING MEAL for 90 Active metFORMIN HCl 500 MG 2 tabs Orally twice a day for 90 days Active Social History Tobacco Use: Social History Observation [...] Never (0 point) Points 3 Interpretation Negative Vital Signs Blood pressure systolic 148 mm Hg 07/11/19 25 Blood pressure diastolic 70 mm Hg 025 Height 67.5 in 07/10/2024 Weight 209 lbs 07/10/2024 BMI 32.25 kg/m2 07/10/2024 Encounters Encounter Location Date Provider Diagnosis Eliseo Campos MD [address] [place] [address] [place] [phone] 07/10/2024 Eliseo Campos Type 2 diabetes mandeep itus without complication, without long-term current use of insulin E11.9 ; Acquired hypothyroidism E03.9 ; Hypercholesterolemia E78.00 and Essential hypertension I10 Assessments Encounter Date Diagnosis (ICD Code) Assessment Notes Treatment Notes Treatment Clinical Notes Section Notes 07/10/2024 Type 2 diabetes mandeep itus without complication, without long-term current use of insulin (ICD-10 - E11.9) 07/10/2024 Acquired hypothyroid ism (ICD-10 - E03.9) tsh good 07/10/2024 Hypercholesterolemia (ICD-10 - E78.00) well controlled 07/10/2024 Essential hypertensi on (ICD-10 - I10) Plan Of Treatment Medication Medication Name Sig Start Date Stop Date Notes Atorvastatin Calcium 40 MG TAKE 1 TABLET BY MOUTH EVERY DAY Orally Once a day amLODIPine Besylate 5 MG TAKE 1 TABLET B Y MOUTH EVERY DAY Lisinopril-hydroCHLOROthiazi de 20-12.5 MG TAKE 1 TABLET BY MOUTH EVERY DAY Rybelsus 14 MG TAKE 1 TABLET BY GHASSAN TH ONCE A DAY AT LEAST 30 MINUTES BEFORE FIRST FOOD, BEVERAGE OR OTHER ORAL MEDS for 90 days Levothyroxine Sodium 75 MCG TAKE 1 TABLE T BY MOUTH EVERY DAY IN THE MORNING ON EMPTY STOMACH metFORMIN HCl 500 MG 2 tabs Orally twice a day for 90 days Treatment Notes Assessment Notes Acquired hypothyroidism tsh good Hypercholesterolemia well controlled Next Appt Details Follow Up: 3 Months, Reason: Provider Name:Eliseo Mi bony, 01/06/2025 01:30:00 PM, [address] [place] [address], [address] [place] [address], [phone], Provider Name:Eliseo Mi helenr, 01/08/2025 02:00:00 PM, [address] [place] [address], [address], [phone], Provider Name:Eliseo Pabonamanda ier, 07/10/2025 07:30:00 AM, [address] [place] [address], [address], [phone], Provider Name:Eliseo Mi helenr, 07/17/2025 01:00:00 PM, [address] [place] [address], [address], [phone], Progress Notes * Ashwin GOLDDOB:[birth year] (78 yo M)Acc No.[id number]:07/10/2024 Patient: Ashwin BUSH Provider: Latrice Campos MD :1945 A ge:78 Y S ex:Male Date:07/10/2024 Address:[address] [place] [address] , [facility] Subjective: * Chief Complaints: * R eview labs * HPI: D epression Screening: PHQ-9 L ittle interest or pleasure in doing things N ot at all, F eeling down, depressed, or hopeless N ot at all, T rouble falling or staying asleep, or sleeping too much N ot at all, F eeling tired or having little energy N ot at all, P oor appetite or overeating N ot at all, F eeling bad about yourself or that you are a failure, or have let yourself or your family down N ot at all, T rouble concentrating on things, such as reading the newspaper or watching television N ot at all, M oving or speaking so slowly that other people could have noticed; or the opposite, being so fidgety or restless that you have been moving around a lot more than usual N ot at all, T houghts that you would be better off or of hurting yourself in some way N ot at all, T otal Score 0 . here for yearly evaluation. C ommunication Needs: Communication Needs D oes the patient have a hearing impairment Y es, I f yes, what is the hearing impairment? H amanda of hearing, Hearing Aids, D oes the patient have a vision impairment? Y es, I f yes, what is the vision impairment? G lasses, D oes the patient have a cognition impairment? N o. F all Risk: History H ave you had any falls with injury in the past year? N o, H ave you had two or more falls in the past year? N o. S HEIKE Questions: SDOH Questions I n the past year have you been worried about losing housing? N o, I n the past year have you or any family members you live with been unable to get any of the following when it was really needed? Check all that apply: N one. S ymptom(s): patient is a 78 yo male here for visit with review of recent labs and follow up of chronic issues. * ROS: G eneral/Constitutional: Change in appetite d enies. C hills d enies. F ever d enies. O phthalmologic: Blurred vision d enies. D ischarge d enies. P ain d enies. E NT: Decreased hearing d enies. S ore throat d enies.?Swollen glands d enies. E ndocrine: Cold intolerance d enies. E xcessive thirst d enies. H eat intolerance d enies. W eight loss d enies. R espiratory: Cough d enies. S hortness of breath at rest d enies. S hortness of breath with exertion d enies. W heezing d enies. C ardiovascular: Chest pain at rest d enies. C hest pain with exertion?denies. I rregular heartbeat d enies. S hortness of breath d enies. ? G astrointestinal: Abdominal pain d enies. C hange in bowel habits d enies. D iarrhea d enies. N ausea d enies. R ectal bleeding d enies. V omiting d enies . G enitourinary: Blood in urine d enies. D ifficulty urinating d enies. F requent urination d enies. M usculoskeletal: Painful joints d enies. W eakness d enies. ? S kin: Dry skin d enies. I tching d enies. D enies?Mole(s), changes in moles, new moles or any lesions of concern. D enies P hotosensitivity. R cee d enies. N eurologic: Dizziness d enies. F ainting d enies. H eadache?denies. * Medical History: * Surgical History: * Hospitalization/Major Diagno stic Procedure: * Family History: F ather: 84 yrs. M other: 96 yrs. 1 sister(s) . . 1 sister CVA Father- CHF Mother- CVS, Denies mental health/substance abuse family history, Denies mental health/substance abuse family history, No pertinent family medical history, No pertinent family medical history. * Social History: T obacco Use: T obacco Use/Smoking P atient is a n onsmoker, A dditional Findings: Tobacco Non-User C urrent non-smoker, currently using no form of tobacco. D rugs/Alcohol: A lcohol Screen D id you have a drink containing alcohol in the past year? Y es, H ow often did you have a drink containing alcohol in the past year? 2 to 3 times a week (3 points), H ow many drinks did you have on a typical day when you were drinking in the past year? 1 or 2 drinks (0 point), H ow often did you have 6 or more drinks on one occasion in the past year? N ever (0 point), P oints 3 , I nterpretation N egative. M iscellaneous: C affeine: yes, frequency:, 1-2 cups per day. Children: no. Exercise: no. Home smoke detector use: yes. Marital status: single. 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 Travel outside of the [place]: no. * Medications: T akingFreeStyle Lancets - Miscellaneous as directed Levothyroxine Sodium 75 MCG Tablet TAKE 1 TABLET BY MOUTH EVERY DAY IN THE MORNING ON EMPTY STOMACH FreeStyle Lite Test - Strip USE TO TEST BLOOD SUGAR ONCE A DAY In Vitro FreeStyle Lite Test - Strip as directed In Vitro daily Atorvastatin Calcium 40 MG Tablet TAKE 1 TABLET BY MOUTH EVERY DAY Orally Once a day metFORMIN HCl 500 MG Tablet TAKE 2 TABLETS BY MOUTH TWICE A DAY WITH MEALS Omeprazole 20 MG Capsule Delayed Release TAKE 1 CAPSULE BY MOUTH EVERY DAY 30 MINUTES BEFORE MORNING MEAL amLODIPine Besylate 5 MG Tablet TAKE 1 TABLET BY MOUTH EVERY DAY Lisinopril-hydroCHLOROthiazide 20-12.5 MG Tablet TAKE 1 TABLET BY MOUTH EVERY DAY Rybelsus 7 MG Tablet TAKE 1 TABLET BY MOUTH ONCE A DAY AT LEAST 30 MINUTES BEFORE FIRST FOOD, BEVERAGE OR OTHER ORAL MEDS Medication List reviewed and reconciled with the patientTaking FreeStyle Lancets - Miscellaneous as directed Taking Levothyroxine Sodium 75 MCG Tablet TAKE 1 TABLET BY MOUTH EVERY DAY IN THE MORNING ON EMPTY STOMACH Taking FreeStyle Lite Test - Strip USE TO TEST BLOOD SUGAR ONCE A DAY In Vitro Taking FreeStyle Lite Test - Strip as directed In Vitro daily Taking Atorvastatin Calcium 40 MG Tablet TAKE 1 TABLET BY MOUTH EVERY DAY Orally Once a day Taking metFORMIN HCl 500 MG Tablet TAKE 2 TABLETS BY MOUTH TWICE A DAY WITH MEALS Taking Omeprazole 20 MG Capsule Delayed Release TAKE 1 CAPSULE BY MOUTH EVERY DAY 30 MINUTES BEFORE MORNING MEAL Taking amLODIPine Besylate 5 MG Tablet TAKE 1 TABLET BY MOUTH EVERY DAY Taking Lisinopril-hydroCHLOROthiazide 20-12.5 MG Tablet TAKE 1 TABLET BY MOUTH EVERY DAY Taking Rybelsus 7 MG Tablet TAKE 1 TABLET BY MOUTH ONCE A DAY AT LEAST 30 MINUTES BEFORE FIRST FOOD, BEVERAGE OR OTHER ORAL MEDS Medication List reviewed and reconciled with the patient * Allergies: N .K.D.A.yes[Allergies Verified] Objective: * Vitals: H t: 67.5, Wt: 209, BMI:32.25, BP:148/70, Repeat BP:140/78, Wt-k.8. * P ast Orders: L ab:PSA,Total (Free>4and<10) (Order Date - 07/03/2024) (Collection Date & Time - 07/03/2024 07:30 AM) Value Reference Range PSA,Total (Free>4and<10) 1.75 0.00-4.00 - ng/ mL L ab:TSH reflex Free T4 (Order Date 07/03/2024) (Collection Date & Time 07/03/2024 07:30 AM) Value Reference Range TSH reflex Free T4 3.02 0.32-4.0 - uIU/mL L ab:Microalbumin, Random (Order Date 07/03/2024) (Collection Date & Time 07/03/2024 07:30 AM) Value Reference Range Creatinine Urine 190.74 - mg/dL Microalbumin Urine 34.0 - mg/L Microalbum Creatinine Ratio Ur 17.8 <30 - ug/ mg cr L ab:Hemoglobin A1c (Order Date 07/03/2024) (Collection Date & Time 07/03/2024 07:30 AM) Value Reference Range Hemoglobin A1c % 8.3 H <6.0 - % Estimated Average Glucose 192 - mg/dL L ab:Comprehensive Alpha. Panel Fast (Order Date 07/03/2024) (Collection Date & Time 07/03/2024 07:30 AM) Value Reference Range Sodium 138 135-145 - mmol/L Bilirubin Total 1.0 0.0-1.0 - mg/dL Aspartate Amino Transferase 19 5-37 - U/L Alanine Aminotransferase 26 0-40 - U/L Total Protein 6.6 6.5-8.0 - g/dL Albumin Level 4.3 3.5-5.0 - g/dL Alkaline Phosphatase 67 39-117 - U/L Potassium 4.0 3.3-5.1 - mmol/L Chloride 100 96-108 - mmol/L Carbon Dioxide 31 H 22-29 - mmol/L Anion Gap 11 L 12-20 - Blood Urea Nitrogen 14 9-16 - mg/dL Creatinine 0.98 0.5-1.4 - mg/dL Estimated Glomerular Filt Rate > 60 - Glucose Fasting 205 H 60-99 - mg/dL Calcium 9.3 8.4-10.2 - mg/dL L ab:Lipid Panel (Order Date 07/03/2024) (Collection Date & Time - 07/03/2024 07:30 AM) Value Reference Range Triglycerides 143 <150 - mg/dL Cholesterol 118 <200 - mg/dL LDL Cholesterol Calculated 59 <100 - mg/dL HDL Cholesterol 31 L >40 - mg/dL L ab:Complete Blood Count Auto Diff (Order Date - 07/03/2024) (Collection Date & Time - 07/03/2024 07:30 AM) Value Reference Range White Blood Count 7.2 4.8-10.8 - X10*3/uL Red Blood Count 4.69 4.60-5.80 - X10*6/uL Hemoglobin 15.1 14.0-18.0 - g/dl Hematocrit 42.3 42.0-52.0 - % Mean Corpuscular Volume 90.2 80.0-98.0 - fL Mean Corpuscular Hemoglobin 32.2 27.0-33.0 - pg Mean Corpuscular HGB Conc 35.7 31.0-36.0 - g/ dl Red Cell Distribution Width 12.0 11.0-16.0 - % Platelet Count 198 160-400 - X10*3/uL Mean Platelet Volume 12.9 H 9.4-12.4 - fL Neutrophils Percent Auto 60.3 45-73 - % Imm Gran Pct Auto 0.4 0.0-0.4 - % Lymphocytes Percent Auto 29.0 20-40 - % Monocytes Percent Auto 9.0 2-11 - % Eosinophils Percent Auto 1.0 0-4 - % Basophils Percent Auto 0.3 0-2 - % NRBC Pct Auto 0.0 0.0-0.2 - /100WBC Neutrophils Absolute Auto 4.3 2.0-8.3 - x10* 3/uL Imm Gran Abs Auto 0.03 0.00-0.03 - X10*3/uL Lymphocytes Absolute Auto 2.1 1.2-4.9 - X10* 3/uL Monocytes Absolute Auto 0.6 0.1-1.2 - X10*3/ uL Eosinophils Absolute Auto 0.1 0.0-0.4 - X10* 3/uL Basophils Absolute Auto 0.0 0.0-0.2 - X10*3/ uL NRBC Abs Auto 0.000 0.0-0.012 - X10*3/uL L ab:UA ClnCatch+Micro w/rflx Cult (Order Date - 07/03/2024) (Collection Date & Time - 07/03/2024 07:30 AM) Value Reference Range Color Urine Yellow - Appearance Urine Clear - PH 5.5 5.0-9.0 - Glucose Urine UA Negative Negative - mg/dL Urine Blood Negative Negative - Specific [place] - Urine 1.025 1.005-1.025 - Urine Protein Trace Neg-Trace - mg/dL Urine Ketones Trace Negative - mg/dL Nitrite Urine Negative Negative - Leukocyte Esterase Urine Negative Negative - RBC Urine 0-2 0-2 - /HPF WBC Urine 0-5 0-5 - /HPF Squamous Epithelial Cell Urine 0-2 0-2 - /HP F Bacteria Urine None Seen None Seen - Hyaline Casts Urine 0-2 0-2 - /LPF * Examination: G eneral Examination: GENERAL APPEARANCE: w ell developed, well nourished, in no acute distress. HEAD: n ormocephalic, atraumatic. EYES: p upils equal, round, reactive to light and accommodation, sclera non-icteric. EARS: n ormal. ORAL CAVITY: m ucosa moist. THROAT: c lear. NECK/THYROID: n agnes supple, full range of motion, no cervical lymphadenopathy, no bruits. SKIN: w arm and dry, no suspicious lesions. HEART: r egular rate and rhythm, S1, S2 normal, no murmurs.? LUNGS: c lear to auscultation bilaterally. ABDOMEN: s oft, nontender, nondistended, bowel sounds present, normal, no organomegaly , no masses palpable. RECTAL EXAM: n ormal tone, no external hemorrhoids, no masses palpable, prostate normal, stool guaiac negative. MALE GENITOURINARY: w ith hyroceles. EXTREMITIES: n o clubbing, cyanosis, or edema. NEUROLOGIC: n onfocal, motor strength normal upper and lower extremities, sensory exam intact. Assessment: * Assessment: 1. T ype 2 diabetes mellitus without complication, without long-term current use of insulin - E11.9 (Primary) 2 . A cquired hypothyroidism - E03.9 3 . H ypercholesterolemia - E78.00 4 . E ssential hypertension - I10 Plan: * Treatment: 2. A cquired hypothyroidism Refill metFORMIN HCl Tablet, 500 MG, 2 tabs, Orally, twice a day, 90 days, 360 Tablet, Refills 3;?Continue Levothyroxine Sodium Tablet, 75 MCG, TAKE 1 TABLET BY MOUTH EVERY DAY IN THE MORNING ON EMPTY STOMACH. Notes: tsh good 3. H ypercholesterolemia Continue Atorvastatin Calcium Tablet, 40 MG, TAKE 1 TABLET BY MOUTH EVERY DAY, Orally, Once a day.? Notes: well controlled 4. E ssential hypertension Continue amLODIPine Besylate Tablet, 5 MG, TAKE 1 TABLET BY MOUTH EVERY DAY; C ontinue Lisinopril-hydroCHLOROthiazide Tablet, 20-12.5 MG, TAKE 1 TABLET BY MOUTH EVERY DAY. * Procedure Codes: * Follow Up: 3 Months * * Sign off status: Completed true * Provider: Latrice Campos MD Date: 0 07/10/2024 Generated for Gerardo waite/Bernardino/Sveta on: 02/26/2024 01:25 PM EST History and Physical Notes * HPI (History of Present Illness) Category Sub-Category Detail Notes Category Not es Symptom(s) patient is a 78 yo male here for visit with review of recent labs and follow up of chronic issues Depression Screening PHQ-9 Little inte rest or pleasure in doing things: Not at all here for yearly evaluation Feeling down, depressed, or hopeless: No t at all Trouble falling or staying asleep, or sl eeping too much: Not at all Feeling tired or having little energy: N ot at all Poor appetite or overeating: Not at all Feeling bad about yourself o r that you are a failure, or have let yourself or your family down: Not at all Trouble concentrating on thi ngs, such as reading the newspaper or watching television: Not at all Moving or speaking so slowly that other people could have noticed; or the opposite, being so fidgety or restless that you have been moving around a lot more than usual: Not at all Thoughts that you would be b emelyn off or of hurting yourself in some way: Not at all Total Score: 0 SDOH Questions SDOH Questions In the past year have you been worried about losing housing?: No In the past year have you or any family members you live with been unable to get any of the following when it was really needed? Check all that apply:: None Fall Risk History Have you had any falls with injury i n the past year?: No Have you had two or more falls in the st year?: No Communication Needs Communication Needs Does the patient have a hearing impairment: Yes If yes, what is the hearing impairment?: Hard of hearing, Hearing Aids Does the patient have a vision impairmen t?: Yes If yes, what is the vision impairment?: Glasses Does the patient have a cognition impair ment?: No Examination Category Sub-Category Detail Notes Category Not es General Examination GENERAL APPEARANCE: well dev eloped, well nourished, in no acute distress HEAD: normocephalic, atrau matic EYES: pupils equal, round, reactive to light and accommodation, sclera non-icteric EARS: normal THROAT: clear NECK/THYROID: neck supple, full ra nge of motion, no cervical lymphadenopathy, no bruits HEART: regular rate and rhy thm, S1, S2 normal, no murmurs LUNGS: clear to auscultatio n bilaterally ABDOMEN: soft, nontender, non distended, bowel sounds present, normal, no organomegaly , no masses palpable NEUROLOGIC: nonfocal, motor stre ngth normal upper and lower extremities, sensory exam intact SKIN: warm and dry, no zenobia picious lesions EXTREMITIES: no clubbing, cyanosi s, or edema MALE GENITOURINARY: with hyroceles RECTAL EXAM: normal tone, no exte rnal hemorrhoids, no masses palpable, prostate normal, stool guaiac negative ORAL CAVITY: mucosa moist
--- OUTSIDE RECORDS SUMMARY | 2024-10-07 08:30 | XMS_ITS ---
Author Organization Eliseo Campos MD Address [address] [place], [place] [id number] Care Team Providers Care Plater Apprentice Name Role Phone Eliseo Campos Primary Care Provider [phone] Allergies No Known Allergies Results Component Value Reference Range Notes Hemoglobin A1c Reviewed date:10/07/2024 01:33:07 PM Interpretation: Performing Lab: Notes/Report: Hemoglobin A1c 7.5 Glucose, finger stick Reviewed date:10/07/2024 01:26:43 PM Interpretation: Performing Lab: Notes/Report: Value 174 REASON FOR VISIT 3 MO F/U Medications Medication SIG (Take, Route, Frequency, Duration) Notes Start Date End Date Status Levothyroxine Sodium 75 MCG TAKE 1 TABLE T BY MOUTH EVERY DAY IN THE MORNING ON EMPTY STOMACH Active Atorvastatin Calcium 40 MG TAKE 1 TABLET BY MOUTH EVERY DAY Orally Once a day Active Omeprazole 20 MG TAKE 1 CAPSULE BY MO UTH EVERY DAY 30 MINUTES BEFORE MORNING MEAL for 90 Active amLODIPine Besylate 5 MG TAKE 1 TABLET B Y MOUTH EVERY DAY Active Lisinopril-hydroCHLOROthiazi de 20-12.5 MG TAKE 1 TABLET BY MOUTH EVERY DAY Active FreeStyle Lite Test - as directed In Vit ro daily for 90 days 01/03/2024 Active Rybelsus 14 MG TAKE 1 TABLET BY GHASSAN TH ONCE A DAY AT LEAST 30 MINUTES BEFORE FIRST FOOD, BEVERAGE OR OTHER ORAL MEDS Active FreeStyle Lite Test - USE TO TEST BLOOD SUGAR ONCE A DAY In Vitro for 90 days Active metFORMIN HCl 500 MG 2 tabs Orally twice a day Active FreeStyle Lancets - as directed for 90 days 2020 Active Vital Signs Blood pressure systolic 142 mm Hg 10/08/19 25 Blood pressure diastolic 64 mm Hg 025 Height 67.5 in 10/07/2024 Weight 206 lbs 10/07/2024 BMI 31.78 kg/m2 10/07/2024 weight is down 3 pounds formerly [facility], [facility] 07-10-24 Encounters Encounter Location Date Provider Diagnosis Eliseo Campos MD [address] [place] [phone] 10/07/2024 Eliseo Campos Type 2 diabetes mellitus without complication, without long-term current use of insulin E11.9 Assessments Encounter Date Diagnosis (ICD Code) Assessment Notes Treatment Notes Treatment Clinical Notes Section Notes 10/07/2024 Type 2 diabetes mellitus without complication, without long-term current use of insulin (ICD-10 - E11.9) Plan Of Treatment Medication Medication Name Sig Start Date Stop Date Notes Rybelsus 14 MG TAKE 1 TABLET BY GHASSAN TH ONCE A DAY AT LEAST 30 MINUTES BEFORE FIRST FOOD, BEVERAGE OR OTHER ORAL MEDS metFORMIN HCl 500 MG 2 tabs Orally twice a day Next Appt Details Follow Up: 3 Months, Reason: Provider Name:Eliseo lovett, 01/06/2025 01:30:00 PM, [address] [place] [address], [phone], Provider Name:Eliseo lovett, 01/08/2025 02:00:00 PM, [address] [place] [address], [phone], Provider Name:Eliseo lovett, 07/10/2025 07:30:00 AM, [address] [place] [address], [phone], Provider Name:Eliseo lovett, 07/17/2025 01:00:00 PM, [address] [place] [address], [phone], Progress Notes * Nicole GOLD:[birth year] (79 yo M)Acc No.[id number]:10/07/2024 Progress Notes Patient: Ashwin BUSH Provider: Latrice Campos MD :1945 A ge:79 Y S ex:Male Date:10/07/2024 Address:[address] [place] [address], [facility] Subjective: * Chief Complaints: * 3 MO F/U * HPI: S ymptom(s): patient is a 79 yo male here for 3 month follow up visit. * ROS: G eneral/Constitutional: Denies C hills. D enies F atigue. D enies F ever. D enies H eadache. E NT: Denies S ore throat. E ndocrine: Denies D ifficulty sleeping. D enies D izziness.?Denies E xcessive sweating. D enies E xcessive thirst. D enies F requent urination. R espiratory: Denies C ough. D enies S hortness of breath at rest. D enies S hortness of breath with exertion. C ardiovascular: Denies C hest pain at rest. D enies C hest pain with exertion. D enies D izziness. D enies P alpitations. D enies S hortness of breath. G astrointestinal: Denies D iarrhea. D enies N ausea. * Medical History: * Surgical History: * Hospitalization/Major Diagno stic Procedure: * Medications: T akingFreeStyle Lancets - Miscellaneous as directed FreeStyle Lite Test - Strip USE TO TEST BLOOD SUGAR ONCE A DAY In Vitro FreeStyle Lite Test - Strip as directed In Vitro daily Omeprazole 20 MG Capsule Delayed Release TAKE 1 CAPSULE BY MOUTH EVERY DAY 30 MINUTES BEFORE MORNING MEAL Rybelsus 14 MG Tablet TAKE 1 TABLET BY MOUTH ONCE A DAY AT LEAST 30 MINUTES BEFORE FIRST FOOD, BEVERAGE OR OTHER ORAL MEDS metFORMIN HCl 500 MG Tablet 2 tabs Orally twice a day Levothyroxine Sodium 75 MCG Tablet TAKE 1 TABLET BY MOUTH EVERY DAY IN THE MORNING ON EMPTY STOMACH Atorvastatin Calcium 40 MG Tablet TAKE 1 TABLET BY MOUTH EVERY DAY Orally Once a day amLODIPine Besylate 5 MG Tablet TAKE 1 TABLET BY MOUTH EVERY DAY Lisinopril-hydroCHLOROthiazide 20-12.5 MG Tablet TAKE 1 TABLET BY MOUTH EVERY DAY Medication List reviewed and reconciled with the patientTaking FreeStyle Lancets - Miscellaneous as directed Taking FreeStyle Lite Test - Strip USE TO TEST BLOOD SUGAR ONCE A DAY In Vitro Taking FreeStyle Lite Test - Strip as directed In Vitro daily Taking Omeprazole 20 MG Capsule Delayed Release TAKE 1 CAPSULE BY MOUTH EVERY DAY 30 MINUTES BEFORE MORNING MEAL Taking Rybelsus 14 MG Tablet TAKE 1 TABLET BY MOUTH ONCE A DAY AT LEAST 30 MINUTES BEFORE FIRST FOOD, BEVERAGE OR OTHER ORAL MEDS Taking metFORMIN HCl 500 MG Tablet 2 tabs Orally twice a day Taking Levothyroxine Sodium 75 MCG Tablet TAKE 1 TABLET BY MOUTH EVERY DAY IN THE MORNING ON EMPTY STOMACH Taking Atorvastatin Calcium 40 MG Tablet TAKE 1 TABLET BY MOUTH EVERY DAY Orally Once a day Taking amLODIPine Besylate 5 MG Tablet TAKE 1 TABLET BY MOUTH EVERY DAY Taking Lisinopril-hydroCHLOROthiazide 20-12.5 MG Tablet TAKE 1 TABLET BY MOUTH EVERY DAY Medication List reviewed and reconciled with the patient * Allergies: N .K.D.A.yes[Allergies Verified] Objective: * Vitals: H t: 67.5, Wt: 206, BMI:31.78, BP:142/64, Repeat BP:160/78, Wt-k.44. weight is down 3 pounds since 07-10-24. * Examination: G eneral Examination: GENERAL APPEARANCE: a lert, well hydrated, in no distress.? HEAD: n ormocephalic. SKIN: g ood turgor. HEART: r egular rate and rhythm, no murmurs, rubs, gallops.? LUNGS: n o wheezes, rales, rhonchi, good air movement, clear to auscultation bilaterally. Assessment: * Assessment: 1. T ype 2 diabetes mellitus without complication, without long-term current use of insulin - E11.9 (Primary) Plan: * Treatment: Value Reference Range H emoglobin A1c 7.5 ?LAB: Glucose, finger stick (Collection Date & Time - 10/07/2024)* Value Reference Range V alue 174 * Procedure Codes: 8 2947 ASSAY, GLUCOSE, BLOOD QUANT, Modifiers: QW 29871 GLYCATED HEMOGLOBIN TEST, Modifiers: QW * Follow Up: 3 Months * * Sign off status: Completed true * Provider: Latrice Campos MD Date: 0 10/07/2024 Generated for Gerardo waite/Bernardino/Sveta on: 1 02/26/2024 01:26 PM EST History and Physical Notes * HPI (History of Present Illness) Category Sub-Category Detail Notes Category Not es Symptom(s) patient is a 79 yo male here for 3 month follow up visit Examination Category Sub-Category Detail Notes Category Not es General Examination GENERAL APPEARANCE: alert, w ell hydrated, in no distress HEAD: normocephalic HEART: regular rate and rhy thm, no murmurs, rubs, gallops LUNGS: no wheezes, rales, r honchi, good air movement, clear to auscultation bilaterally SKIN: good turgor
--- OUTSIDE RECORDS SUMMARY | 2024-12-26 03:00 | XMS_ITS ---
Author Organization Eliseo Campos MD Address [address] [place], [place] [id number] Care Team Providers Care Cooler Operator Name Role Phone Eliseo Campos Primary Care Provider Results Component Value Reference Range Notes Liver Panel Reviewed date:12/26/2024 12:30:57 PM Interpretation: Performing Lab:[address] [id number] Notes/Report: Bilirubin Total 1.1 0.0-1.0 mg/dL Bilirubin Direct 0.3 0.0-0.5 mg/dL Aspartate Amino Transferase 18 5-37 U/L Alanine Aminotransferase 20 0-40 U/L Total Protein 6.6 6.5-8.0 g/dL Albumin Level 4.4 3.5-5.0 g/dL Alkaline Phosphatase 70 39-117 U/L Glucose Fasting Reviewed date:12/26/2024 12:30:26 PM Interpretation: Performing Lab:[address] [phone] Notes/Report: Glucose Fasting 167 60-99 mg/dL A fasting glucose of 126 mg/dl or greater on more than one occasion is considered diagnostic of diabetes. Lipid Panel with Reflex Reviewed date:12/26/2024 12:31:07 PM Interpretation: Performing Lab:[facility], [address] [place] [phone] Notes/Report: Triglycerides 144 <150 mg/dL Desirable Triglyceride: less than 150 mg/dL Borderline High Triglyceride 150-199 mg/dL High Triglyceride: 200-499 mg/dL Very High Triglyceride: greater than or equal to 5OO mg/dL Cholesterol 122 <200 mg/dL Desirable Cholesterol: less than 200 mg/dL Borderline High Cholesterol: 200-239 mg/dL High Cholesterol: greater than 239 mg/dL LDL Cholesterol Calculated 57 <100 mg/dL Desirable LDL: less than 100 mg/dL Near Optimal/Above Optimal LDL: 110-129 mg/dL Borderline High LDL: 130-159 mg/dL High LDL: 160-189 mg/dL Very High LDL: greater than or equal to 190 mg/dL HDL Cholesterol 37 >40 mg/dL Desirable HDL: greater than 40 mg/dL Note: This HDL assay may give artificially low results in patients with liver disease. Hemoglobin A1c Reviewed date:12/26/2024 12:28:05 PM Interpretation: Performing Lab:[facility], [address] [place] [phone] Notes/Report: Hemoglobin A1c % 7.2 <6.0 % Hemoglobin A1C Reference Range Adults: 4.8 - 6.0 % Non diabetic: < 6.0 % Goal: < 7.0 % Additional Action Suggested: > 8.0 % Note: Hemoglobin A1c results are invalid for patients with abnormal amounts of HbF. Blood transfusions may impact the HbA1c concentration in the patient sample. Estimated Average Glucose 160 eAG = Estimated average glucose which is %A1C expressed as average glucose, using the formula of the X3O-Ncveopb Average Glucose study (ADAG), Diabetes Care, Vol.31,#8, Sep. 2007 REASON FOR VISIT FASTING LIPIDS Encounters Encounter Location Date Provider Diagnosis Eliseo Campos MD [address] [place] [address] [place] [phone] 12/26/2024 Eliseo Campos Hypercholesterolemia E78.00 and Type 2 diabetes mellitus without complication, without long-term current use of insulin E11.9 Assessments Encounter Date Diagnosis (ICD Code) Assessment Notes Treatment Notes Treatment Clinical Notes Section Notes 12/26/2024 Hypercholesterolemia (ICD-10 - E78.00) 12/26/2024 Type 2 diabetes mandeep itus without complication, without long-term current use of insulin (ICD-10 - E11.9) Plan Of Treatment Next Appt Details Provider Name:Eliseo Mi ier, 01/06/2025 01:30:00 PM, [address], [address], [place], [place], [phone], Provider Name:Eliseo Mi ier, 01/08/2025 02:00:00 PM, [address], [address], [place], [place], [phone], Provider Name:Eliseo Mi ier, 07/10/2025 07:30:00 AM, [address], [address], [place], [place], [phone], Provider Name:Eliseo Mi ier, 07/17/2025 01:00:00 PM, [address], [address], [place], [place], [phone], Progress Notes * Ashwin GOLDDOB:[birth year] (79 yo M)Acc No.[id number]:12/26/2024 Progress Note Patient: Ashwin BUSH Provider: Latrice Campos MD :1945 A ge:79 Y S ex:Male Date:12/26/2024 Address:[address] [place] [address] , [facility] Subjective: * Chief Complaints: * 1 . FASTING LIPIDS. * Medical History: Objective: * Vitals: Assessment: * Assessment: 1. H ypercholesterolemia - E78.00 (Primary) 2 . T ype 2 diabetes mellitus without complication, without long-term current use of insulin - E11.9 Plan: * Treatment: 2. T ype 2 diabetes mellitus without complication, without long-term current use of insulin L AB: Liver Panel (Collection Date & Time - 12/26/2024 08:00 AM) L AB: Glucose Fasting (Collection Date & Time - 12/26/2024 08:00 AM) L AB: Lipid Panel with Reflex (Collection Date & Time - 12/26/2024 08:00 AM) L AB: Hemoglobin A1c (Collection Date & Time - 12/26/2024 08:00 AM) * Procedure Codes: 3 6415 VENIPUNCT, ROUTINE* * * The named appointment provid er may or may not be the originator of this progress note, and it is not deemed complete until electronically signed by the appointment provider. Sign off status: Pending * Provider: Latrice Campos MD Date: 02/26/2024 Generated for Gerardo waite/Bernardino/Sveta on: 02/26/2024 01:26 PM EST
[2024-12-26 11:54] LABS: Alanine Aminotransferase 20 U/L (0-40); Albumin Level 4.4 g/dL (3.5-5.0); Alkaline Phosphatase 70 U/L (39-117); Aspartate Amino Transferase 18 U/L (5-37); Cholesterol 122 mg/dL (<200); HDL Cholesterol 37 mg/dL (>40); Total Protein 6.6 g/dL (6.5-8.0); Triglycerides 144 mg/dL (<150)
[2024-12-26 12:28] LABS: Reflex LDLD? No
--- OUTSIDE RECORDS SUMMARY | 2024-12-26 13:26 | XMS_ITS | Patient Health Record ---
Author Organization Eliseo Campos MD Address [address] [place], [place] [id number] Care Team Providers Care Auto Striper Name Role Phone Eliseo Campos Primary Care Provider Allergies No Known Allergies Results Component Value Reference Range Notes Hemoglobin A1c Reviewed date:10/07/2024 01:33:07 PM Interpretation: Performing Lab: Notes/Report: Hemoglobin A1c 7.5 Liver Panel Reviewed date:12/27/2023 04:39:22 PM Interpretation: Performing Lab:[facility], [address] [place] [phone] Notes/Report: Bilirubin Total 1.1 0.0-1.0 mg/dL Bilirubin Direct 0.3 0.0-0.5 mg/dL Aspartate Amino Transferase 26 5-37 U/L Alanine Aminotransferase 30 0-40 U/L Total Protein 6.6 6.5-8.0 g/dL Albumin Level 4.2 3.5-5.0 g/dL Alkaline Phosphatase 65 39-117 U/L Glucose Fasting Reviewed date:12/27/2023 04:44:18 PM Interpretation: Performing Lab:[facility], [address] [place] [phone] Notes/Report: Glucose Fasting 176 60-99 mg/dL A fasting glucose of 126 mg/dl or greater on more than one occasion is considered diagnostic of diabetes. Lipid Panel with Reflex Reviewed date:12/27/2023 04:43:57 PM Interpretation: Performing Lab:[facility], [address] [place] [phone] Notes/Report: Triglycerides 173 <150 mg/dL Desirable Triglyceride: [...] A1c Reviewed date:12/27/2023 12:40:02 PM Interpretation: Performing Lab:[facility], [address] [place] [phone] Notes/Report: Hemoglobin A1c % 7.6 <6.0 % [...] average glucose, using the formula of the O0M-Zrdpcyz Average Glucose study (ADAG), Diabetes Care, Vol.31,#8, Sep. 2007 Complete Blood Count Auto Di ff Reviewed date:07/03/2024 02:33:50 PM Interpretation: Performing Lab:[facility], [address] [place] [phone] Notes/Report: White Blood Count 7.2 4.8-10.8 X10*3/uL [...] NRBC Abs Auto 0.000 0.0-0.012 X10*3/uL Comprehensive [place]. Panel Fa st Reviewed date:07/03/2024 12:55:09 PM Interpretation: Performing Lab:[facility], [address] [place] [phone] Notes/Report: Sodium 138 135-145 mmol/L Potassium 4.0 [...] Panel Reviewed date:07/03/2024 12:47:20 PM Interpretation: Performing Lab:[facility], [address] [place] [phone] Notes/Report: Triglycerides 143 <150 mg/dL Desirable Triglyceride: [...] (Free>4and<10) Reviewed date:07/03/2024 12:46:44 PM Interpretation: Performing Lab:[facility], [address] [place] [phone] Notes/Report: PSA,Total (Free>4and<10) 1.75 0.00-4.00 ng/mL A [...] T4 Reviewed date:07/03/2024 12:46:54 PM Interpretation: Performing Lab:[address] [phone] Notes/Report: TSH reflex Free T4 3.02 0.32-4.0 uIU/mL Microalbumin, Random Reviewed date:07/03/2024 12:47:01 PM Interpretation: Performing Lab:[facility], [address] [place] [phone] Notes/Report: Creatinine Urine 190.74 Microalbumin Urine 34.0 Microalbum/Creatinine Ratio Ur 17.8 <30 ug/mg cr Albumin/Creatinine Ratio Reference Ranges: Normal: < 30 ug/mg creatinine Microalbuminuria: 30 - 300 ug/mg creatinine Clinical Albuminuria: > 300 ug/mg creatinine Hemoglobin A1c Reviewed date:07/03/2024 12:46:36 PM Interpretation: Performing Lab:[facility], [address] [place] [phone] Notes/Report: Hemoglobin A1c % 8.3 <6.0 % [...] average glucose, using the formula of the M5B-Ehwtmlt Average Glucose study (ADAG), Diabetes Care, Vol.31,#8, Sep. 2007 UA ClnCatch+Micro w/rflx Cul t Reviewed date:07/03/2024 02:34:08 PM Interpretation: Performing Lab:[address] [phone] Notes/Report: Urine, Clean Catch Color Urine Yellow Appearance Urine Clear PH 5.5 5.0-9.0 Glucose Urine UA Negative Negative mg/dL Urine Blood Negative Negative Specific [place] - Urine 1.025 1.005-1.025 Urine Protein Trace Neg-Trace mg/dL Urine Ketones Trace Negative mg/dL Nitrite Urine Negative Negative Leukocyte Esterase Urine Negative Negative RBC Urine 0-2 0-2 /HPF WBC Urine 0-5 0-5 /HPF Squamous Epithelial Cell Urine 0-2 0-2 /HPF Bacteria Urine None Seen None Seen Hyaline Casts Urine 0-2 0-2 /LPF Liver Panel Reviewed date:12/26/2024 12:30:57 PM Interpretation: Performing Lab:[facility], [address] [place] [phone] Notes/Report: Bilirubin Total 1.1 0.0-1.0 mg/dL Bilirubin Direct 0.3 0.0-0.5 mg/dL Aspartate Amino Transferase 18 5-37 U/L Alanine Aminotransferase 20 0-40 U/L Total Protein 6.6 6.5-8.0 g/dL Albumin Level 4.4 3.5-5.0 g/dL Alkaline Phosphatase 70 39-117 U/L Glucose Fasting Reviewed date:12/26/2024 12:30:26 PM Interpretation: Performing Lab:[facility], [address] [place] [phone] Notes/Report: Glucose Fasting 167 60-99 mg/dL A fasting glucose of 126 mg/dl or greater on more than one occasion is considered diagnostic of diabetes. Lipid Panel with Reflex Reviewed date:12/26/2024 12:31:07 PM Interpretation: Performing Lab:[address] [phone] Notes/Report: Triglycerides 144 <150 mg/dL Desirable Triglyceride: [...] A1c Reviewed date:12/26/2024 12:28:05 PM Interpretation: Performing Lab:[facility], [address] [place] [phone] Notes/Report: Hemoglobin A1c % 7.2 <6.0 % [...] average glucose, using the formula of the B1R-Iwxfowd Average Glucose study (ADAG), Diabetes Care, Vol.31,#8, 2007 Glucose, finger stick Reviewed date:10/07/2024 01:26:43 PM Interpretation: Performing Lab: Notes/Report: Value 174 Kathy Riddle Reviewed date:12/27/2023 12:33:02 PM Interpretation: Performing Lab:[facility], [address] [place] [phone] Notes/Report: Kathy Riddle See Note Specimen held untested for 24 hours; Call to request Chemistry testing. Kathy Riddle Reviewed date:12/26/2024 12:29:41 PM Interpretation: Performing Lab:[facility], [address] [place] [phone] Notes/Report: Kathy Riddle See Note Specimen held untested for 24 [...] ro daily for 90 days 01/03/2024 Active Omeprazole 20 MG TAKE 1 CAPSULE BY [facility] EVERY DAY 30 MINUTES BEFORE MORNING MEAL for 90 Active Rybelsus 14 MG TAKE 1 TABLET [...] as directed for 90 days 2020 Active amLODIPine Besylate 5 MG TAKE 1 TABLET B Y MOUTH EVERY DAY Active Lisinopril-hydroCHLOROthiazi de 20-12.5 MG TAKE 1 TABLET BY MOUTH EVERY DAY Active Immunizations Vaccine Route Administration Date Status [...] Problem Status W/U Status Risk Notes Problem 444815890 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 Problem 96582409 Essential hypert ension (I10) Active confirmed Problem 997767632 Acquired hypothy roidism (E03.9) Active confirmed Problem 28381840 Hypercholesterol emia (E78.00) Active confirmed Problem 529353877 Type 2 diabetes mellitus without complication, without long-term current use of insulin (E11.9) Active confirmed Problem 93078340 Hyperplastic luis yp of sigmoid colon (K63.5) Active confirmed Vital Signs Blood pressure diastolic 64 mm Hg 10/07/2024 yanely ght is down 3 pounds since 07-10-24 Height 67.5 in 10/07/2024 weight is down 3 pounds since 07-10-24 Blood pressure systolic 142 mm Hg 10/07/2024 weig ht is down 3 pounds since 07-10-24 Weight 206 lbs 10/07/2024 weight is down 3 pounds since 07-10-24 BMI 31.78 kg/m2 10/07/2024 weight is down 3 pounds since 07-10-24 Encounters Encounter Location Date Provider Diagnosis Eliseo Campos MD [address] [id number] 12/27/2023 Eliseogigi Pabonardier Hypercholesterolemia E78.00 and Type 2 diabetes mellitus without complication, without long-term current use of insulin E11.9 Eliseo Campos MD [address] [id number] 07/03/2024 Eliseo Pabonardier Hypercholesterolemia E78.00 ; Type 2 diabetes mellitus without complication, without long-term current use of insulin E11.9 ; Acquired hypothyroidism E03.9 and Essential hypertension I10 Eliseo Campos MD [address] [id number] 12/26/2024 Eliseo Pepperardier Hypercholesterolemia E78.00 and Type 2 diabetes mellitus without complication, without long-term current use of insulin E11.9 Eliseo Campos MD [address] [id number] 01/03/2024 Eliseo Pepperardier Hypercholesterolemia E78.00 ; Type 2 diabetes mellitus without complication, without long-term current use of insulin E11.9 and Essential hypertension I10 Eliseo Campos MD [address] [id number] 07/10/2024 Eliseo Campos Type 2 diabetes mandeep itus without complication, without long-term current use of insulin E11.9 ; Acquired hypothyroidism E03.9 ; Hypercholesterolemia E78.00 and Essential hypertension I10 Eliseo Campos MD [address] [place] [id number] 10/07/2024 Eliseo Campos Type 2 diabetes mandeep itus without complication, without long-term current use of insulin E11.9 Eliseo Campos MD [address] [place] [id number] 06/06/2024 Eliseo Campos Essential hypertensi on I10 Assessments Encounter Date Diagnosis (ICD Code) Assessment Notes Treatment Notes Treatment Clinical Notes Section Notes 12/27/2023 Hypercholesterolemia (ICD-10 - E78.00) 12/27/2023 Type 2 diabetes mellitus without complication, without long-term current use of insulin (ICD-10 - E11.9) 07/03/2024 Hypercholesterolemia (ICD-10 - E78.00) 12/26/2024 Hypercholesterolemia (ICD-10 - E78.00) 01/03/2024 Hypercholesterolemia (ICD-10 - E78.00) doing well on meds, will cntinue current regiment 07/10/2024 Type 2 diabetes mellitus without complication, without long-term current use of insulin (ICD-10 - E11.9) 10/07/2024 Type 2 diabetes mellitus without complication, without long-term current use of insulin (ICD-10 - E11.9) 06/06/2024 Essential hypertensi on (ICD-10 - I10) 07/03/2024 Type 2 diabetes mellitus without complication, without long-term current use of insulin (ICD-10 - E11.9) 12/26/2024 Type 2 diabetes mellitus without complication, without long-term current use of insulin (ICD-10 - E11.9) 01/03/2024 Type 2 diabetes mellitus without complication, without long-term current use of insulin (ICD-10 - E11.9) has an improvement in a1c, will contiue current regiment 07/10/2024 Acquired hypothyroid ism (ICD-10 - E03.9) tsh good 07/03/2024 Acquired hypothyroid ism (ICD-10 - E03.9) 01/03/2024 Essential hypertensi on (ICD-10 - I10) stable, will continue current regiment 07/10/2024 Hypercholesterolemia (ICD-10 - E78.00) well controlled 07/03/2024 Essential hypertensi on (ICD-10 - I10) 07/10/2024 Essential hypertensi on (ICD-10 - I10) Plan Of Treatment Pending Test Test Name Order Date Electrocardiogram (EKG) 04/18/2018 Next Appt Details Provider Name:Eliseo Mi ier, 01/06/2025 01:30:00 PM, [address] [place] [address], Suite [facility], [place], [place], [phone], Provider Name:Eliseo Mi ier, 01/08/2025 02:00:00 PM, [address] [place] [address], [place] [address], [place], [place], [phone], Provider Name:Eliseo Mi ier, 07/10/2025 07:30:00 AM, [address] [place] [address], [address], [phone], Provider Name:Eliseo Mi ier, 07/17/2025 01:00:00 PM, [address] [place] [address], [place] [address], [place], [place], [phone], Insurance Providers Payer Name Payer Address Payer Phone Subscriber Number Group Number Insured Name Patient Relationship to Insured Coverage Start Date Coverage End Date [employer] [address] [place] [address] [id number] Ashwin Hunt Self - patient is the insured [facility] [address] [place] [address] [id number] Ashwin Hunt Self - patient is the insured Medical (General) History Medical History History ICD Code Colonoscopy done 07/03/2017 aubree Petit (he thinks) Hyperplastic Polyp in Sigmoid Colon, Repeat 10 years estefanias is substitute for mckay
== END 2024-12-26 11:09 | disposition home or self-care (01) ==
LOC: HO.LNP 11:08
PROVIDERS: Visit Provider Internal Medicine
DX: E78.00 Pure hypercholesterolemia, unspecified (principal); E11.9 Type 2 diabetes mellitus without complications
CPT/HCPCS: 80061; 80076; 82947; 83036